=== PATIENT | female | born 1945 | race Caucasian/White ===

== ENCOUNTER → 2016-08-22 | Outpatient (CLI) | payer OTHER ==
[2016-08-22 13:03] LABS: ESTIMATED AVERAGE GLUCOSE 120 mg/dl; HA1C FLAG Normal (Normal)
[2016-08-22 13:13] LABS: ALT/SGPT 23 U/L (12-78); BLOOD UREA NITROGEN 15 mg/dl (7-18); BUN/CREATININE RATIO 15.8 (10-20); CARBON DIOXIDE 25 mmol/L (21-32); CHLORIDE 109 mmol/L (98-107); CHOLESTEROL 209 mg/dl (0-200); CREATININE 0.92 mg/dl (0.60-1.20); GLUCOSE 99 mg/dl (70-99); POTASSIUM 4.3 mmol/L (3.5-5.1); SODIUM 141 mmol/L (136-145); TRIGLYCERIDES 178 mg/dl (0-150); VERY LOW DENSITY LIPOPROT CALC 36 mg/dl
[2016-08-22 13:17] LABS: ALB/GLOB RATIO 1.1 (0.9-2); ALKALINE PHOSPHATASE 41 U/L (45-117); AST/SGOT 17 U/L (15-37); CHOLESTEROL/HDL RATIO 4.9; HDL CHOLESTEROL 43 mg/dl; LDL CHOLESTEROL CALCULATED 130 mg/dl
[2016-08-22 13:24] LABS: CALCIUM 9.4 mg/dl (8.5-10.1)
== END | disposition home or self-care (01) ==
LOC: C.LABPVFM 09:14
PROVIDERS: ATTEND Nurse Practitioner
DX: E78.5 Hyperlipidemia, unspecified (principal); R73.01 Impaired fasting glucose; Z11.59 Encounter for screening for other viral diseases

== ENCOUNTER → 2017-02-25 | Outpatient (CLI) | payer OTHER ==
[2017-02-25 13:08] LABS: BLOOD UREA NITROGEN 20 mg/dl (7-18); BUN/CREATININE RATIO 18.6 (10-20); CARBON DIOXIDE 26 mmol/L (21-32); CHLORIDE 105 mmol/L (98-107); CHOLESTEROL 223 mg/dl (0-200); CREATININE 1.07 mg/dl (0.60-1.20); GLUCOSE 98 mg/dl (70-99); HDL CHOLESTEROL 45 mg/dl; LDL CHOLESTEROL CALCULATED 144 mg/dl; POTASSIUM 4.1 mmol/L (3.5-5.1); SODIUM 139 mmol/L (136-145); TRIGLYCERIDES 168 mg/dl (0-150); VERY LOW DENSITY LIPOPROT CALC 34 mg/dl
== END | disposition home or self-care (01) ==
LOC: C.LABPVFM 07:39
PROVIDERS: ATTEND Nurse Practitioner
DX: E78.5 Hyperlipidemia, unspecified (principal); R73.01 Impaired fasting glucose

== ENCOUNTER → 2017-03-04 | Outpatient (CLI) | payer OTHER | END | disposition home or self-care (01) | LOC: C.LABPVFM 12:48 | PROVIDERS: ATTEND Nurse Practitioner | DX: R35.0 Frequency of micturition (principal); N39.0 Urinary tract infection, site not specified ==

== ENCOUNTER → 2017-07-04 | Outpatient (CLI) | payer OTHER ==
--- NOTE | 2017-07-04 09:48 | DIAGNOSTIC IMAGING REPORT ---
R RIBS UNILATERAL WITH PA CHEST CLINICAL HISTORY: CONTUSION OF RIB ON RIGHT SIDE trauma. Pain. COMPARISON STUDY: None FINDINGS: Negative right ribs. Negative chest. No evidence of pneumothorax. IMPRESSION: Negative right ribs. Negative chest. The above report was generated using voice recognition software. It may contain grammatical, syntax or spelling errors. Electronically signed by: Warner Graham M.D. 07/04/2017 9:47 AM Dictated Date/Time: 07/04/2017 9:45 AM
== END | disposition home or self-care (01) ==
LOC: C.RADPV 09:29
PROVIDERS: ATTEND Family Medicine
DX: S20.211A Contusion of right front wall of thorax, initial encounter (principal); X58.XXXA Exposure to other specified factors, initial encounter

== ENCOUNTER → 2017-08-27 | Outpatient (CLI) | payer OTHER ==
[2017-08-27 13:33] LABS: HEMOGLOBIN A1C 5.9 % (4.5-5.6)
[2017-08-27 13:55] LABS: BLOOD UREA NITROGEN 21 mg/dl (7-18); CARBON DIOXIDE 25 mmol/L (21-32); CHOLESTEROL 163 mg/dl (0-200); CREATININE 1.02 mg/dl (0.60-1.20); GLUCOSE 100 mg/dl (70-99); LDL CHOLESTEROL CALCULATED 87 mg/dl; POTASSIUM 4.2 mmol/L (3.5-5.1); SODIUM 138 mmol/L (136-145)
== END | disposition home or self-care (01) ==
LOC: C.LABPVFM 07:34
PROVIDERS: ATTEND Nurse Practitioner
DX: R73.01 Impaired fasting glucose (principal); E78.5 Hyperlipidemia, unspecified

== ENCOUNTER 2019-04-11 10:44 | Observation (INO) ==
[2019-04-11 11:18] LABS: Basophils # (auto) 0.02 K/uL (0-0.2); Basophils % (auto) 0.2 %; Eosinophils # (auto) 0.11 K/uL (0-0.5); Eosinophils % (auto) 1.3 %; Hematocrit (blood only) 45.6 % (37-47); Hemoglobin 15.7 g/dL (12.0-16.0); Immature Granulocytes # (auto) 0.02 K/uL (0.00-0.02); Immature Granulocytes % (auto) 0.2 %; Lymphocytes # (auto) 1.23 K/uL (1.2-3.4); Lymphocytes % (auto) 14.6 %; Mean Corpuscular Hgb Conc 34.4 g/dL (32-36); Mean Corpuscular Volume 98.7 fL (80-100); Mean Platelet Volume 8.9 fL (7.4-10.4); Monocytes # (auto) 0.52 K/uL (0.11-0.59); Monocytes % (auto) 6.2 %; Neutrophils # (auto) 6.55 K/uL (1.4-6.5); Neutrophils % (auto) 77.5 %; Platelet Count 315 K/uL (130-400); RDW Coefficient of Variation 13.3 % (11.5-14.5); RDW Standard Deviation 47.7 fL (36.4-46.3); Red Blood Count 4.62 M/uL (4.2-5.4); White Blood Count 8.45 K/uL (4.8-10.8)
[2019-04-11 11:32] LABS: Partial Thromboplastin Ratio 0.9; Partial Thromboplastin Time 25.4 Seconds (21.0-31.0); Prothrombin Time 9.8 Seconds (9.0-12.0)
--- NOTE | 2019-04-11 11:39 | XRay Report ---
XR chest 1V portable CLINICAL HISTORY: Chest Pain COMPARISON STUDY: Chest radiograph July 04, 2017. FINDINGS: Lung volumes are normal. Lungs are clear. There is no pneumothorax or pleural effusion. Car diac size is normal. Mediastinal contours are normal. There is no evidence for pulmonary edema. A sma ll hiatal hernia is present. IMPRESSION: 1. No acute cardiopulmonary findings. 2. Small hiatal hernia. ACT 112: Negative or not required by law. Electronically signed by: Sanjay Daley M.D. 04/11/2019 11:38 AM
[2019-04-11 11:44] LABS: Alanine Aminotransferase 17 U/L (12-78); Aspartate Aminotransferase 13 U/L (15-37); BUN Creatinine Ratio 16.3 (10-20); Blood Urea Nitrogen 15 mg/dl (7-18); Carbon Dioxide 24 mmol/L (21-32); Chloride 109 mmol/L (98-107); Est GFR (African American) 72.6; Est GFR (Non-African American) 62.6; Glucose 119 mg/dl (70-99); Potassium 4.1 mmol/L (3.5-5.1); Sodium 140 mmol/L (136-145)
[2019-04-11 11:49] LABS: Albumin Globulin Ratio 1.1 (0.9-2); Alkaline Phosphatase 64 U/L (45-117); Bilirubin,Total 0.6 mg/dl (0.2-1); Globulin 3.6 gm/dl (2.5-4.0); Total Protein 7.6 gm/dl (6.4-8.2); Troponin I < 0.015 ng/ml (0-0.045)
[2019-04-11] MEDS ORDERED: NITROGLYCERIN 2% OINTMENT 30GM TUBE EXT STA (12:13)
[2019-04-11] MEDS ORDERED: ASPIRIN CHEW 324 MG PO STA (12:13)
--- NOTE | 2019-04-11 13:13 | History & Physical Report ---
Date of Service April 11, 2019 Assessment & Plan (1) Chest pain: rule out ACS CBC, PRP WNL Trop neg x1, serials pending CXR noted for hiatal hernia, which could be cause of sx--GI cocktail PRN EKG WNL t/c stress test in AM if sx persist and GI cocktail is not effective Mg, B12 levels pending (2) Elevated blood pressure reading without diagnosis of hypertension: Improved with nitro patch Pt may have underlying HTN that has been managed with nadolol (has been on since the 80s for MVP) Monitor BP at last office visit 03/01 was 114/65 Possibly related to anxiety regarding chest pain as numbers at home have not been elevated over 130s until this AM (3) Mitral valve prolapse syndrome: Takes nadolol for this, continue (4) Insomnia: Trazodone as at home (5) Chronic reflux esophagitis: continue home meds GI cocktail as noted (6) Anxiety: continue home meds (7) Dyslipidemia: continue home meds (8) Impaired fasting glucose: Monitor (9) DVT prophylaxis: Ambulation given likely short duration of admission History of Present Illness Primary Care Provider: LASHELL Clements 73 y/o F c/o chest pain. Pt states that she has been having intermittent chest pain for the last two weeks. She states it comes and goes different times of day, but she also goes days without any episodes. Sometimes the episodes last for minutes, but can last hours as well. She might take a tylenol if the pain persists, but she does not think this helps. The pain is substernal and more central, does not radiate. It can be with activity or at rest. No SOB, n/v, lightheadedness, dizziness. She has a BP cuff and has checked her BP with these episodes at times, but her BP is either WNL or in the 130s systolic. Pt has no hx of HTN. She is fairly active. She goes to an exercise class 3 times a week and has no issues with this. She took down and put away all of her [place] decorations on , which entailed carrying heavy boxes upstairs. She worked on this all day and no chest pain at that time. Yesterday was a normal day for her activity lin and she had no issues doing what she needed to do. Pt states she became very concerned this AM when she had chest pain last night and again when she woke up. She checked her BP at that time and it was 177/90, which it has never been prior. She came to the ED at that time, however her chest pain had resolved by arrival and has not returned. Her BP has been as high as 180s systolic in the ED. Pt has hx of reflux. She takes daily omeprazole. She has not missed dosing. She does not tie chest pain in with eating, but states that she had not really paid attention to the timing from a PO intake standpoint. She does have a "funny stomach" that seems to have more issues recently. Pt denies fever, abd pain, c/d, LE pain or swelling. Allergies Allergy/AdvReac Type Severity Reaction Status Date / Time Sulfa (Sulfonamide Allergy Unknown Verified 04/11/19 11:43 Antibiotics) melatonin AdvReac Mild Diarrhea Verified 04/11/19 11:43 Home Medications Home Medications Medication Instructions Recorded Confirmed Type polyvinyl alcohol-povidone 2.7 %-2 1 drp OPB QAM PRN ml 10/19/18 04/11/19 History % eye drops ascorbic acid (vitamin C) 500 mg 500 mg PO QAM tab 02/22/19 04/11/19 History tablet calcium carbonate 600 mg calcium 600 mg PO QAM tab 02/22/19 04/11/19 History (1,500 mg) tablet cholecalciferol (vitamin D3) 25 1,000 units PO QAM cap 02/22/19 04/11/19 History mcg (1,000 unit) capsule flaxseed oil 1,000 mg capsule 1,000 mg PO BID #1 cap 02/22/19 04/11/19 History omega-3 acid ethyl esters 1 gram 1 cap PO TID #1 cap 02/22/19 04/11/19 History capsule sodium chloride 5 % eye ointment 1 appln OP HS gm 02/22/19 04/11/19 History aspirin 81 mg PO QAM 04/11/19 04/11/19 History atorvastatin 20 mg PO HS 04/11/19 04/11/19 History cinnamon bark [Cinnamon] 500 mg PO BIDM 04/11/19 04/11/19 History nadolol 80 mg PO QAM 04/11/19 04/11/19 History omeprazole 20 mg PO QAM 04/11/19 04/11/19 History trazodone 50 mg PO HS PRN 04/11/19 04/11/19 History Past Med/Surg History Medical History Anxiety (Chronic) Chronic reflux esophagitis (Chronic) Dyslipidemia (Chronic) Impaired fasting glucose (Chronic) Insomnia (Chronic) Mitral valve prolapse syndrome (Chronic) Surgical History No pertinent past surgical history Family History Mother Myocardial infarction Social History marital status: Single Current Living Situation: Alone current occupational status: retired Feels Safe at Home: Yes Smoking Status: Never smoker Hx Alcohol Use: No Hx Substance Use: No caffeine: No Dental Care, Regularly: Yes Physical Activity Frequency: 3-4 Times per Week Seatbelt Use: always Sunscreen Use: Yes Review of Systems Review of Systems: Pertinent positives and negatives reviewed in HPI--all others negative Physical Exam Constitutional: WD/WN, vitals as above Eyes: normal visual jones by confrontation and + anicteric sclerae Neck: normal visual inspection and trachea midline Respiratory: normal respiratory effort, lungs clear to auscultation Cardiovascular: Rate/Rhythm: regular rate and regular rhythm Gastrointestinal (Abdomen): Inspection/Auscultation: abdomen not distended Percussion/Palpation: abdomen soft; abdomen nontender Musculoskeletal: Head/Neck/Chest: normocephalic and head atraumatic negative for edema, peripheral pulses intact Skin: no rashes, warm and dry Neurologic: awake; not confused Speech / Cognition: normal speech Psychiatric: A+Ox3, euthymic affect Results & Data Vital Signs (Past 12 Hours) Vital Signs Temp Pulse Pulse Resp BP BP Pulse Ox 04/11/19 12:16 98 H 20 163/104 H 96 04/11/19 11:03 76 18 176/113 H 98 04/11/19 11:02 98 04/11/19 10:49 36.8 C 76 20 180/98 H 97 Diagnostic Findings CXR: small hiatal hernia ECG Rhythm: normal sinus Code Status & VTE Plan Code Status Full code, although pt states no prolonged mechanical life support, feeding tubes, etc. She has a living will that states this. Daughter is present and agrees with this plan. VTE Prophylaxis Plan VTE Prophylaxis will be ordered: Yes PG Care Time/CCT Total # of Minutes Spent Total Time Spent with Patient: Total time spent is greater than 50% in coordination of care (as documented) at patient's floor/unit and/or counseling patient:
--- NOTE | 2019-04-11 13:13 | Electrocardiogram Report ---
Test Reason : Blood Pressure : / mmHG Vent. Rate : 077 BPM Atrial Rate : 077 BPM P-R Int : 160 ms QRS Dur : 086 ms QT Int : 360 ms P-R-T Axes : 023 -02 051 degrees QTc Int : 407 ms Normal sinus rhythm Normal ECG No previous ECGs available Confirmed by Rancho Sandhu ([id number]) on 04/11/2019 1:13:01 PM Referred By: Confirmed By:Rancho Sandhu
--- NOTE | 2019-04-11 13:27 | Hospitalist Progress Note ---
Date of Service April 11, 2019 Results & Data Vital Signs (Past 12 Hours) Vital Signs Temp Pulse Pulse Resp BP BP Pulse Ox 04/11/19 12:16 98 H 20 163/104 H 96 04/11/19 11:03 76 18 176/113 H 98 04/11/19 11:02 98 04/11/19 10:49 36.8 C 76 20 180/98 H 97 PG Care Time/CCT Total # of Minutes Spent Total Time Spent with Patient: Total time spent is greater than 50% in coordination of care (as documented) at patient's floor/unit and/or counseling patient:
[2019-04-11] MEDS ORDERED: ACETAMINOPHEN 500 MG TAB PO STA (13:34)
[2019-04-11] MEDS ORDERED: ONDANSETRON INJ 2 MG/ML 2 ML VIAL IV PRN (14:23)
[2019-04-11] MEDS ORDERED: TRAZODONE HCL 50 MG TAB PO PRN (14:23)
[2019-04-11] MEDS ORDERED: MAGNESIUM HYDROXIDE SUSP 30 ML UDC PO PRN (14:23)
[2019-04-11] MEDS ORDERED: NITROGLYCERIN SL 0.4 MG/TAB TAB SL PRN (14:23)
[2019-04-11] MEDS ORDERED: ACETAMINOPHEN 325 MG TAB PO PRN (14:23)
[2019-04-11] MEDS ORDERED: ALUMINUM/MAGNESIUM SUSP 18 ML, LIDOCAINE HCL VISCOUS 2% 6 ML, BARCODE IDENTIFIER 1 EA PO PRN (14:23)
[2019-04-11 16:03] LABS: Magnesium 1.9 mg/dl (1.8-2.4); Troponin I < 0.015 ng/ml (0-0.045)
[2019-04-11] MEDS: OMEGA-3 (PURIFIED FISH OIL) 1 GM CAP PO SCH ×2 (16:18→20:23)
--- NOTE | 2019-04-11 16:45 | Emergency Department Note ---
Entered by Tommie Beltrán acting as a scribe for Ced Mckeon MD ED Provider Note CHIEF COMPLAINT: chest pain HISTORY OF PRESENT ILLNESS: The patient is a 73 year old F who presents to the Emergency Room with complaints of intermittent chest pain that started 2 weeks ago. She notes that her chest pain is located in her upper chest. She describes her chest pain as a pressure. She states that when an episode of chest pain starts, it usually lasts for minutes to hours. She denies that her chest pain is made better or worse by anything. She states that she had some chest pressure last night. She adds that she had some chest pressure this morning. She notes that she came into the ED today, because she experienced high blood pressure. She adds that her blood pressure was 177/90. She notes that her blood pressure has never been that high. She states that she is currently also experiencing shortness of breath. She notes that she currently takes Labetalol for a mitral valve prolapse that occurred in the . She denies any recent long trips or hospitalizations. She also denies a history of smoking. She states that she has a family history of a heart attack. She notes that she was taken off of aspirin recently. She adds that she sees a PCP at [facility]. Pt denies LOC, headache, fevers, chills, diaphoresis, visual changes, neck pain, nausea, vomiting, abdominal pain, back pain, melena, hematochezia, urinary symptoms, numbness, weakness, lymphadenopathy, rash, or other complaints. REVIEW OF SYSTEMS: See HPI for pertinent positives and negatives. A total of ten systems were reviewed and were otherwise negative. PMHx/PSHx: Anxiety, mitral valve prolapse, insomnia, dyslipidemia, chronic reflux esophagitis SOCIAL HISTORY: Patient lives at home. Non-smoker. PHYSICAL EXAM: GENERAL: Awake, alert, well-appearing, in no distress HENT: Normocephalic, atraumatic. Oropharynx unremarkable. EYES: PERRL. Normal conjunctiva. Sclera non-icteric. NECK: Inspection normal. Non-tender. Supple. No nuchal rigidity. FROM. No masses. RESPIRATORY: Clear to auscultation. No wheezes. No rales. Normal respiratory effort. CARDIAC: Normal rate. Normal rhythm. No murmurs. No rubs. Extremities warm and well perfused. Pulses equal. No JVD. GI: Soft, non-distended. No tenderness to palpation. No rebound or guarding. No masses. RECTAL: Deferred. MUSCULOSKELETAL: Atraumatic. Chest examination reveals no tenderness. The back is symmetrical on inspection without obvious abnormality. There is no CVA tenderness to palpation. No joint edema. LOWER EXTREMITIES: Calves are equal size bilaterally and non-tender. No edema. No discoloration. NEURO: Normal sensorium. No sensory or motor deficits noted. SKIN: No rash or jaundice noted. EMERGENCY DEPARTMENT COURSE: 1202: The patient was evaluated in room A11B, and a complete history and physical examination were performed. 1221: I reviewed the patient's case with Dr. Leisa Chandler, [facility] Hospitalist. She will evaluate the patient for further management. MEDICAL DECISION MAKING: Triage Nursing notes reviewed and agree them. Additional history obtained from the family. The patient's history was concerning for chest pain. Differential diagnosis: Etiologies such as cardiac ischemia, aortic dissection, pulmonary embolism, pneumonia, pneumothorax, musculoskeletal, infections, pericarditis, myocarditis, esophageal rupture, gastrointestinal, as well as others were entertained. Physical examination: As above. ER treatment provided: Oral aspirin Nitropaste Oral Tylenol Diagnostic interpretation by me: The electrocardiogram was negative for pathologic change. The labs revealed an unremarkable CBC and chemistry panel. LFTs and lipase negative. Troponin normal. Imaging studies: Chest x-ray negative for acute process The patient has had intermittent chest pain. She has a family history of coronary disease. She has significant elevations of her blood pressure. I discussed conservative management with a cardiac work-up in the hospital and the patient and family were in agreement. I gave my usual and customary discussion regarding this issue. Consultation: A consultation was placed with the hospitalist. The case was discussed and diagnostics were reviewed. The patient was evaluated in the ER for further treatment. IMPRESSION: Substernal chest pain PLAN: Admitted as inpatient. The scribe's documentation has been prepared under my direction and personally reviewed by me in its entirety. I confirm that the note above accurately reflects all work, treatment, procedures, and medical decision making performed by me. 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 Beliefs That Will Affect Care: None marital status: Single Current Living Situation: Alone current occupational status: retired Feels Safe at Home: Yes Smoking Status: Never smoker Second Hand Exposure: No ; Hx Alcohol Use: No Hx Substance Use: No caffeine: No Dental Care, Regularly: Yes Physical Activity Frequency: 3-4 Times per Week Seatbelt Use: always Sunscreen Use: Yes Results & Data Vital Signs Vital Signs - 24 hr 04/11/19 10:49 04/11/19 11:02 04/11/19 11:03 Temperature 36.8 C Temperature Source Oral Pulse Rate 76 Pulse Rate [Apical] 76 Pulse Rhythm [Apical] Regular Pulse Strength [Apical] Normal Respiratory Rate 20 18 Respiratory Effort / Characteristics Non-Labored Non-Labored Spontaneous Respiratory Depth Normal Normal Blood Pressure 180/98 H Blood Pressure [Left Arm] 176/113 H Blood Pressure Mean 125 Blood Pressure Mean [Left Arm] 134 Blood Pressure Position [Left Arm] Sitting Pulse Oximetry 97 98 98 Oxygen Delivery Method Room Air Room Air Room Air Sepsis Recent Fever Within 48 Hours No Sepsis Action Taken by Nursing No Action Required 04/11/19 11:17 04/11/19 12:16 Temperature Temperature Source Pulse Rate Pulse Rate [Apical] 98 H Pulse Rhythm [Apical] Pulse Strength [Apical] Respiratory Rate 20 Respiratory Effort / Characteristics Non-Labored Respiratory Depth Normal Blood Pressure Blood Pressure [Left Arm] 163/104 H Blood Pressure Mean Blood Pressure Mean [Left Arm] 123 Blood Pressure Position [Left Arm] Pulse Oximetry 96 Oxygen Delivery Method Room Air Room Air Sepsis Recent Fever Within 48 Hours Sepsis Action Taken by Prison Medications Current Medication List: was personally reviewed by me Laboratory Data Attestation: I reviewed the patient's lab results. Result diagrams: 04/11/19 Unknown 04/11/19 Unknown Lab Results 04/11/19 04/11/19 04/11/19 Range/Units Unknown Unknown Unknown WBC 8.45 (4.8-10.8) K/uL RBC 4.62 (4.2-5.4) M/uL Hgb 15.7 (12.0-16.0) g/dL Hct 45.6 (37-47) % MCV 98.7 (80-100) fL MCH 34.0 (25-34) pg MCHC 34.4 (32-36) g/dL RDW Std Deviation 47.7 H (36.4-46.3) fL RDW Coeff of Abril 13.3 (11.5-14.5) % Plt Count 315 (130-400) K/uL MPV 8.9 (7.4-10.4) fL Immature Gran % (Auto) 0.2 % Neut % (Auto) 77.5 % Lymph % (Auto) 14.6 % [place] % (Auto) 6.2 % Eos % (Auto) 1.3 % Baso % (Auto) 0.2 % Immature Gran # (Auto) 0.02 (0.00-0.02) K/uL Neut # (Auto) 6.55 H (1.4-6.5) K/uL Lymph # (Auto) 1.23 (1.2-3.4) K/uL [place] # (Auto) 0.52 (0.11-0.59) K/uL Eos # (Auto) 0.11 (0-0.5) K/uL Baso # (Auto) 0.02 (0-0.2) K/uL PT 9.8 (9.0-12.0) Seconds INR 1.0 (0.9-1.1) APTT 25.4 (21.0-31.0) Seconds PTT Ratio 0.9 Sodium 140 (136-145) mmol/L Potassium 4.1 (3.5-5.1) mmol/L Chloride 109 H (98-107) mmol/L Carbon Dioxide 24 (21-32) mmol/L Anion Gap 7.0 (3-11) BUN 15 (7-18) mg/dl Creatinine 0.92 (0.6-1.2) mg/dl Est Cr Clr Drug Dosing 48.0 ml/min Est GFR ( Amer) 72.6 Est GFR (Non-Af Amer) 62.6 BUN/Creatinine Ratio 16.3 (10-20) Glucose 119 H (70-99) mg/dl Calcium 10.0 (8.5-10.1) mg/dl Total Bilirubin 0.6 (0.2-1) mg/dl AST 13 L (15-37) U/L ALT 17 (12-78) U/L Alkaline Phosphatase 64 (45-117) U/L Troponin I < 0.015 (0-0.045) ng/ml Total Protein 7.6 (6.4-8.2) gm/dl Albumin 4.0 (3.4-5.0) gm/dl Globulin 3.6 (2.5-4.0) gm/dl Albumin/Globulin Ratio 1.1 (0.9-2) Administered Medications Fish Oil ([place]-3 (Purified Fish Oil)) 1 gm PO TID FRANK Stop: 05/11/19 15:59 Last Admin: 04/11/19 16:18 Dose: 1 gm Documented by: [id number] Miscellaneous (Order Awaiting Action) 1 ea N/A DAILY FRANK Stop: 05/11/19 15:59 Last Admin: 04/11/19 16:18 Dose: Not Given Documented by: [id number] Discontinued Medications Acetaminophen (Tylenol) 1,000 mg PO NOW STA Stop: 04/11/19 13:35 Last Admin: 04/11/19 13:38 Dose: 1,000 mg Documented by: [id number] Aspirin (Aspirin) 324 mg PO NOW STA Stop: 04/11/19 12:14 Last Admin: 04/11/19 12:23 Dose: 324 mg Documented by: [id number] Nitroglycerin (Nitro-Bid 2%) 0.5 inch EXT NOW STA Stop: 04/11/19 12:14 Last Admin: 04/11/19 12:23 Dose: 0.5 inch Documented by: [id number] Imaging Data Radiologist's Impression: Radiology results as stated below per my review and the radiologist's interpretation: XR chest 1V portable CLINICAL HISTORY: Chest Pain COMPARISON STUDY: Chest radiograph July 04, 2017. FINDINGS: Lung volumes are normal. Lungs are clear. There is no pneumothorax or pleural effusion. Cardiac size is normal. Mediastinal contours are normal. There is no evidence for pulmonary edema. A small hiatal hernia is present. IMPRESSION: 1. No acute cardiopulmonary findings. 2. Small hiatal hernia. ACT 112: Negative or not required by law. Electronically signed by: Sanjay Daley M.D. 04/11/2019 11:38 AM ECG Data Attestation: I personally reviewed and interpreted this ECG as follows: Indication: + chest pain Rate (beats per minute): 77 Rhythm: normal sinus ECG Intervals/blocks: + Normal QRS ECG [place]: + Normal ECG ST segments: no ST depression and no ST elevation ECG Findings: no PACs and no PVCs Blood Pressure Blood Pressure Findings: Elevated blood pressure Blood Pressure Disposition: further management by hospitalist Discharge Plan Visit Data *Final* Discharge Date/Time: 04/11/19 13:55 Chief Complaint: Chest Pain Stated Complaint: CHEST PAINS ED Provider: Ced Mckeon Discharge Problem: Substernal chest pain Patient Disposition: Admitted As Inpatient Discharge Instructions Interventions: ED Discharge Assessment Last Done: 04/11/19 13:55 The scribe's documentation has been prepared under my direction and personally reviewed by me in its entirety. I confirm that the note above accurately reflects all work, treatment, procedures, and medical decision making performed by me.
[2019-04-11] MEDS ORDERED: NON-FORMULARY MEDICATION (Cinnamon Bark [Cinnamon] 500 MG) PO SCH (17:00)
[2019-04-11] MEDS ORDERED: SODIUM CHLORIDE 5% (MURO) OP OINT 3.5 GM TUBE OP SCH (21:00)
[2019-04-11] MEDS ORDERED: ATORVASTATIN 20 MG TAB PO SCH (21:00)
[2019-04-11] MEDS ORDERED: NON-FORMULARY MEDICATION (Flaxseed Oil 1,000 MG) PO SCH (21:00)
[2019-04-12] MEDS: OMEGA-3 (PURIFIED FISH OIL) 1 GM CAP PO SCH (08:08)
[2019-04-12 08:20] LABS: Estimated Average Glucose 120 mg/dl; Hemoglobin A1C 5.8 % (4.5-5.6)
[2019-04-12] MEDS ORDERED: CALCIUM 600MG + VIT D 400 IU TAB PO SCH (09:00)
[2019-04-12] MEDS ORDERED: ASCORBIC ACID 500 MG TAB PO SCH (09:00)
[2019-04-12] MEDS ORDERED: ASPIRIN 81 MG ECTAB PO SCH (09:00)
[2019-04-12] MEDS ORDERED: PANTOprazole 40 MG TAB PO SCH (09:00)
[2019-04-12] MEDS ORDERED: nadoloL 40 MG TAB PO SCH (09:00)
[2019-04-12] MEDS ORDERED: CHOLECALCIFEROL 1,000 UNITS TAB PO SCH (09:00)
--- NOTE | 2019-04-12 10:47 | Discharge Summary ---
Date of Service April 12, 2019 Admission HPI Per Admitting Provider 73 y/o F c/o chest pain. Pt states that she has been having intermittent chest pain for the last two weeks. She states it comes and goes different times of day, but she also goes days without any episodes. Sometimes the episodes last for minutes, but can last hours as well. She might take a tylenol if the pain persists, but she does not think this helps. The pain is substernal and more central, does not radiate. It can be with activity or at rest. No SOB, n/v, lightheadedness, dizziness. She has a BP cuff and has checked her BP with these episodes at times, but her BP is either WNL or in the 130s systolic. Pt has no hx of HTN. She is fairly active. She goes to an exercise class 3 times a week and has no issues with this. She took down and put away all of her [employer] decorations on , which entailed carrying heavy boxes upstairs. She worked on this all day and no chest pain at that time. Yesterday was a normal day for her activity lin and she had no issues doing what she needed to do. Pt states she became very concerned this AM when she had chest pain last night and again when she woke up. She checked her BP at that time and it was 177/90, which it has never been prior. She came to the ED at that time, however her chest pain had resolved by arrival and has not returned. Her BP has been as high as 180s systolic in the ED. Pt has hx of reflux. She takes daily omeprazole. She has not missed dosing. She does not tie chest pain in with eating, but states that she had not really paid attention to the timing from a PO intake standpoint. She does have a "funny stomach" that seems to have more issues recently. Pt denies fever, abd pain, c/d, LE pain or swelling. Principal Diagnosis Pt states she had one very fleeting episode of chest pain last night. It came at rest and resolved almost instantly. She did page nursing, but it was felt that since the pain had resolved, it would not benefit pt to have a trial of GI cocktail unless her pain returned. It did not. Pt denies fever, SOB, abd pain, n/v/c/d, LE pain or swelling. Pt states she has 2-3 bowel movements daily. She frequently strains with this and they are not large volume. She also had a "funny stomach" which she further describes as mild nausea after eating that resolves on its own. Discharge Exam Constitutional WD/WN, vitals as above Eyes normal visual jones by confrontation and + anicteric sclerae Neck normal visual inspection and trachea midline Respiratory normal respiratory effort, lungs clear to auscultation Cardiovascular Rate/Rhythm: regular rate and regular rhythm Gastrointestinal (Abdomen) Inspection/Auscultation: abdomen not distended Percussion/Palpation: abdomen soft; abdomen nontender Musculoskeletal Head/Neck/Chest: normocephalic and head atraumatic Skin no rashes, warm and dry Neurologic awake; not confused Speech / Cognition: normal speech Psychiatric A+Ox3, euthymic affect Discharge Data Allergies Allergy/AdvReac Type Severity Reaction Status Date / Time Sulfa (Sulfonamide Allergy Unknown Verified 04/11/19 11:43 Antibiotics) melatonin AdvReac Mild Diarrhea Verified 04/11/19 11:43 Consultations 04/11/19 12:26 ED Decision to Admit Stat Hospital Course (1) Chest pain: rule out ACS CBC, PRP WNL Trop neg x3, EKG WNL CXR noted for hiatal hernia, which could be cause of sx--GI cocktail was not given for trial t/c stress test as outpt if recurring sx Advised to add probiotic to help with GI concerns, which may also help if chest pain stemming from hiatal hernia Mg WNL (2) Elevated blood pressure reading without diagnosis of hypertension: Improved with nitro patch Pt may have underlying HTN that has been managed with nadolol (has been on since the 80s for MVP) Monitor BP at last office visit 03/01 was 114/65 Possibly related to anxiety regarding chest pain as numbers at home have not been elevated over 130s in the past BP was in 130s during admission (3) Mitral valve prolapse syndrome: Takes nadolol for this, continue (4) Insomnia: Trazodone as at home (5) Chronic reflux esophagitis: continue home meds probiotics (6) Anxiety: continue home meds (7) Dyslipidemia: continue home meds (8) DVT prophylaxis: Ambulation given likely short duration of admission (9) B12 deficiency: B12 291 Advised SL B complex Total Time Total Time Spent Total Time Spent (In Minutes): >30 Total Time Includes: Examination of the Patient, Discharge Planning, Medication Reconciliation and Other Discharge Plan Discharge Items Patient Disposition: Home - Self-Care Reason For Visit: CHEST PAINS Discharge Diagnosis: chest pain, likely related to hiatal hernia Activity: Resume your previous activity Non-emergency contact: Primary Care Provider Call non-emergency contact if: your pain is not controlled, your pain is worsening and your pain is unusual for you Follow-up/Referrals: Shey Penny CRNP [Primary Care Provider] - Diet: Regular Addtl Attending Provider Instructions: You should start taking a probiotic. The one I recommend for most patients is J[employer] EPS 5 billion. It is a mix of 8 different bacteria. You can find this product at [employer] in [place]. You should start with 1 a day. The goal is to have 1 solid bowel movement a day. If after 2 weeks you are still feeling constipated, you should increase to 2 probiotics daily. You can take up to 4 a day, but you want to take the least amount of any type of medication or supplement. If you start having diarrhea, you might be taking too much and should decrease. You should take the probiotic away from your reflux medication. You take the reflux medication in the morning, so I would suggest taking the probiotic at night just before bed. You could also take it 30 minutes prior to taking your reflux medication if this is more convenient. Your B12 levels were low. You should start taking a supplement for this. I recommend a sublingual (under the tongue) form because it is better absorbed. It is a B complex, meaning it has several types of B vitamins in it. A good brand is SpunLive and you can find it at [employer] for around $5. You should follow up with your PCP in 2 weeks. If you continue to have chest pain or your chest pain occurs with your exercise, you may need to have a stress test. Pending Studies at Discharge: No Stand-Alone Forms: Call Back Authorization, [employer], Smoking Cessation Medications and DC Order Prescriptions: Continued polyvinyl alcohol-povidone 2.7-2 % drops 1 drp OPB QAM PRN (Reason: Eye Irritation) RF: 0 ascorbic acid (vitamin C) 500 mg tablet 500 mg PO QAM RF: 0 calcium carbonate 600 mg calcium (1,500 mg) tablet 600 mg PO QAM RF: 0 cholecalciferol (vitamin D3) 1,000 unit capsule 1,000 units PO QAM RF: 0 flaxseed oil 1,000 mg capsule 1,000 mg PO BID Qty: 1 RF: 0 omega-3 acid ethyl esters 1 gram capsule 1 cap PO TID Qty: 1 RF: 0 sodium chloride 5 % ointment 1 appln OP HS RF: 0 aspirin 81 mg Tablet,Delayed Release (Dr/Ec) 81 mg PO QAM RF: 0 cinnamon bark [Cinnamon] 500 mg Capsule 500 mg PO BIDM RF: 0 atorvastatin 20 mg tablet 20 mg PO HS RF: 0 nadolol 80 mg tablet 80 mg PO QAM RF: 0 trazodone 50 mg tablet 50 mg PO HS PRN (Reason: Insomnia) RF: 0 omeprazole 20 mg capsule,delayed release(DR/EC) 20 mg PO QAM RF: 0 Discharge Orders: Discharge Order (Routine); Ordered 04/12/19 Ordered By: Leisa Chandler Admission Data Admit Date/Time: 04/11/19 12:58 Attending Provider: Leisa Chandler Admit Provider: Leisa Chandler Primary Care Provider: Shey Penny Other Providers: Leisa Chandler Other Interventions: Discharge Summary Assessment (RN) Last Done: 04/12/19 10:26 DC Date/Time DO NOT enter until pt leaves facility: 04/12/19 11:23
== END 2019-04-12 11:23 | disposition home or self-care (01) ==
LOC: ED 10:44 → 2N 10:44

== ENCOUNTER 2022-07-15 14:10 | Observation (INO) ==
[2022-07-15] MEDS ORDERED: ONDANSETRON INJ 2 MG/ML 2 ML VIAL IV STA ×2 (14:19→16:31)
[2022-07-15] MEDS ORDERED: ACETAMINOPHEN 1,000 MG/100 ML VIAL IV STA (14:19)
--- NOTE | 2022-07-15 14:24 | Emergency Department Note ---
History of Present Illness General Chief complaint: Illness Stated complaint: NAUSEA, VOMITING, DIARRHEA Time Seen by Provider: 07/15/22 14:13 History of Present Illness Provider Complaint: + nausea, + vomiting, + diarrhea and + abdominal pain Onset (ago): day(s) 1 Description of Vomiting: no bilious, no blood-streaked, no bloody or no coffee grounds Description of Diarrhea: no mucousy, no tarry, no blood-streaked or no bloody (bright red) Associated Abdominal Pain: Yes Location of pain: + diffuse Quality: + cramping, + stabbing, + aching, + crushing, + sharp and + dull Pain Consistency: + constant Relieved By: + none Exacerbated By: + eating and + vomiting Context: + possible food poisoning (Symptoms began after eating meatloaf and scallop potatoes last night); no sick contacts, no recent antibiotic use, no alcohol abuse, no smoking or no marijuana use Associated symptoms: + fever/chills; no chest pain or no cough Home Medications Medication Instructions Recorded Confirmed Type polyvinyl alcohol-povidone 2.7 %-2 1 drp OPB QAM PRN Eye Irritation 10/19/18 07/15/22 History % eye drops ascorbic acid (vitamin C) 500 mg 500 mg PO QAM 02/22/19 07/15/22 History tablet calcium carbonate 600 mg calcium 600 mg PO BID 02/22/19 07/15/22 History (1,500 mg) tablet cholecalciferol (vitamin D3) 25 1,000 units PO QAM 02/22/19 07/15/22 History mcg (1,000 unit) capsule flaxseed oil 1,000 mg capsule 1,000 mg PO BID #1 cap 02/22/19 07/15/22 History omega-3 acid ethyl esters 1 gram 1 cap PO QAM #1 cap 02/22/19 07/15/22 History capsule sodium chloride 5 % eye ointment 1 appln OPB HS 02/22/19 07/15/22 History aspirin 81 mg tablet,delayed 81 mg PO QAM 04/11/19 07/15/22 History release cinnamon bark 500 mg capsule 500 mg PO BIDM 04/11/19 07/15/22 History (Cinnamon) lactobacillus combination no.9 4 4,000 mmu cells PO DAILY 04/23/19 07/15/22 History billion cell capsule (Adult 50 Plus Probiotic) vitamin B12 500 mcg-folic acid 400 1 tab PO QDL 04/23/19 07/15/22 History mcg tablet nadolol 80 mg tablet 80 mg PO QAM #90 tabs 01/24/22 07/15/22 Rx omeprazole 20 mg capsule,delayed 20 mg PO QAM #90 caps 03/11/22 07/15/22 Rx release atorvastatin 20 mg tablet 20 mg PO HS #30 tabs 04/12/22 07/15/22 Rx blood sugar diagnostic #50 ea 04/26/22 07/02/22 Rx glucometer- one touch #1 ea 04/26/22 07/02/22 Rx lancets #1 ea 04/26/22 07/02/22 Rx hydroxyzine HCl 25 mg tablet 25 mg PO TID PRN anxiety #90 tabs 05/15/22 07/15/22 Rx lorazepam 0.5 mg tablet 0.5 mg PO DAILY PRN anxiety #10 07/02/22 07/15/22 Rx tabs trazodone 100 mg tablet 100 mg PO HS PRN insomnia 07/15/22 07/15/22 History Allergies Allergy/AdvReac Type Severity Reaction Status Date / Time Sulfa (Sulfonamide Allergy Unknown Unknown Verified 07/02/22 13:26 Antibiotics) melatonin AdvReac Mild Diarrhea Verified 07/02/22 13:26 Past Med/Surg History Medical History Anxiety Chronic reflux esophagitis Dyslipidemia Hip pain, left Insomnia Lumbar radiculopathy Mitral valve prolapse syndrome Osteoarthritis of left hip Spinal stenosis, lumbar region with neurogenic claudication Surgical History No pertinent past surgical history Family History Mother Myocardial infarction Denies family history of Ovarian cancer Prostate cancer Breast cancer Colorectal cancer Social History Smoking Status: Never smoker Second Hand Exposure: No; Hx Alcohol Use: No Hx Substance Use: No Preferred Language: Tongan Communication Ability: Effective Detonator Assembler Required: No Beliefs That Will Affect Care: None marital status: Single Current Living Situation: Alone current occupational status: retired How many Children do You have: 0 Feels Safe at Home: Yes Childhood Exposure to Second-Hand Smoke: No caffeine: No Dental Care, Regularly: Yes Physical Activity Frequency: 3-4 Times per Week Seatbelt Use: always Sunscreen Use: Yes Assistive Devices: Glasses Physical Exam Vital Signs: Vital Signs - 24 hr 07/15/22 14:14 07/15/22 14:14 07/15/22 14:30 Temperature 38.3 C H 37.7 C H Temperature Source Oral Oral Pulse Rate 98 H 89 Pulse Rate [Right Apical] 97 H Pulse Rate from Sp O2 Sensor Respiratory Rate 18 18 18 Respiratory Effort / Characteristics Non-Labored Sponta neous Non-Labored Sponta neous Respiratory Depth Normal Normal Respiratory Patter n Regular Regular Blood Pressure 137/87 Blood Pressure [Ri ght Arm] 137/87 Blood Pressure Yessy n 103 Blood Pressure Yessy n [Right Arm] 103 Pulse Oximetry 95 95 98 Oxygen Delivery Me thod Room Air Room Air Room Air Sepsis Recent Feve r Within 48 Hours Yes Sepsis New/Unexpla ined Change in Men taty Status No Sepsis Action Take n by Nursing No Action Required 07/15/22 14:30 07/15/22 14:21 07/15/22 14:34 Temperature Temperature Source Pulse Rate 97 H Pulse Rate [Right Apical] 89 101 H Pulse Rate from Sp O2 Sensor Respiratory Rate 18 18 Respiratory Effort / Characteristics Non-Labored Sponta neous Non-Labored Sponta neous Respiratory Depth Normal Normal Respiratory Patter n Regular Regular Blood Pressure Blood Pressure [Ri ght Arm] 126/74 Blood Pressure Yessy n Blood Pressure Yessy n [Right Arm] 91 Pulse Oximetry 98 96 Oxygen Delivery Me thod Room Air Room Air Sepsis Recent Feve r Within 48 Hours Sepsis New/Unexpla ined Change in Men taty Status Sepsis Action Take n by Nursing 07/15/22 14:49 07/15/22 14:21 07/15/22 14:30 Temperature Temperature Source Pulse Rate 88 Pulse Rate [Right Apical] 97 H Pulse Rate from Sp O2 Sensor 102 H Respiratory Rate 18 23 Respiratory Effort / Characteristics Non-Labored Sponta neous Respiratory Depth Normal Respiratory Patter n Blood Pressure 126/74 Blood Pressure [Ri ght Arm] Blood Pressure Yessy n 91 Blood Pressure Yessy n [Right Arm] Pulse Oximetry 96 96 Oxygen Delivery Me thod Room Air Sepsis Recent Feve r Within 48 Hours Sepsis New/Unexpla ined Change in Men taty Status Sepsis Action Take n by Nursing 07/15/22 14:30 07/15/22 15:00 07/15/22 15:30 Temperature Temperature Source Pulse Rate 86 94 H 90 Pulse Rate [Right Apical] Pulse Rate from Sp O2 Sensor 86 Respiratory Rate 20 18 22 Respiratory Effort / Characteristics Respiratory Depth Respiratory Patter n Blood Pressure Blood Pressure [Ri ght Arm] Blood Pressure Yessy n Blood Pressure Yessy n [Right Arm] Pulse Oximetry 97 Oxygen Delivery Me thod Sepsis Recent Feve r Within 48 Hours Sepsis New/Unexpla ined Change in Men taty Status Sepsis Action Take n by Nursing 07/15/22 15:45 07/15/22 15:45 07/15/22 16:00 Temperature Temperature Source Pulse Rate 93 H Pulse Rate [Right Apical] Pulse Rate from Sp O2 Sensor 92 H Respiratory Rate 20 Respiratory Effort / Characteristics Respiratory Depth Respiratory Patter n Blood Pressure 135/83 147/86 H Blood Pressure [Ri ght Arm] Blood Pressure Yessy n 100 106 Blood Pressure Yessy n [Right Arm] Pulse Oximetry 97 Oxygen Delivery Me thod Sepsis Recent Feve r Within 48 Hours Sepsis New/Unexpla ined Change in Men taty Status Sepsis Action Take n by Nursing 07/15/22 16:00 07/15/22 16:15 07/15/22 16:15 Temperature Temperature Source Pulse Rate 93 H 96 H Pulse Rate [Right Apical] Pulse Rate from Sp O2 Sensor 93 H 96 H Respiratory Rate 19 22 Respiratory Effort / Characteristics Respiratory Depth Respiratory Patter n Blood Pressure 148/83 H Blood Pressure [Ri ght Arm] Blood Pressure Yessy n 104 Blood Pressure Yessy n [Right Arm] Pulse Oximetry 96 95 Oxygen Delivery Me thod Sepsis Recent Feve r Within 48 Hours Sepsis New/Unexpla ined Change in Men taty Status Sepsis Action Take n by Nursing 07/15/22 16:30 07/15/22 16:30 07/15/22 16:45 Temperature Temperature Source Pulse Rate 95 H 103 H Pulse Rate [Right Apical] Pulse Rate from Sp O2 Sensor 94 H 102 H Respiratory Rate 19 23 Respiratory Effort / Characteristics Respiratory Depth Respiratory Patter n Blood Pressure 134/82 Blood Pressure [Ri ght Arm] Blood Pressure Yessy n 99 Blood Pressure Yessy n [Right Arm] Pulse Oximetry 96 96 Oxygen Delivery Me thod Sepsis Recent Feve r Within 48 Hours Sepsis New/Unexpla ined Change in Men taty Status Sepsis Action Take n by Nursing 07/15/22 16:45 07/15/22 17:00 07/15/22 17:15 Temperature Temperature Source Pulse Rate 102 H 101 H Pulse Rate [Right Apical] Pulse Rate from Sp O2 Sensor Respiratory Rate 24 19 Respiratory Effort / Characteristics Respiratory Depth Respiratory Patter n Blood Pressure 146/82 H Blood Pressure [Ri ght Arm] Blood Pressure Yessy n 103 Blood Pressure Yessy n [Right Arm] Pulse Oximetry Oxygen Delivery Me thod Sepsis Recent Feve r Within 48 Hours Sepsis New/Unexpla ined Change in Men taty Status Sepsis Action Take n by Nursing 07/15/22 18:39 07/15/22 18:33 07/15/22 18:34 Temperature Temperature Source Pulse Rate 104 H 102 H 103 H Pulse Rate [Right Apical] Pulse Rate from Sp O2 Sensor 103 H Respiratory Rate 20 25 H Respiratory Effort / Characteristics Respiratory Depth Respiratory Patter n Blood Pressure Blood Pressure [Ri ght Arm] Blood Pressure Yessy n Blood Pressure Yessy n [Right Arm] Pulse Oximetry 96 Oxygen Delivery Me thod Sepsis Recent Feve r Within 48 Hours Sepsis New/Unexpla ined Change in Men taty Status Sepsis Action Take n by Nursing 07/15/22 18:34 07/15/22 19:00 07/15/22 19:01 Temperature Temperature Source Pulse Rate 103 H Pulse Rate [Right Apical] Pulse Rate from Sp O2 Sensor Respiratory Rate 25 H Respiratory Effort / Characteristics Respiratory Depth Respiratory Patter n Blood Pressure 139/80 122/83 Blood Pressure [Ri ght Arm] Blood Pressure Yessy n 99 96 Blood Pressure Yessy n [Right Arm] Pulse Oximetry Oxygen Delivery Me thod Sepsis Recent Feve r Within 48 Hours Sepsis New/Unexpla ined Change in Men taty Status Sepsis Action Take n by Nursing 07/15/22 19:01 07/15/22 19:30 07/15/22 19:30 Temperature Temperature Source Pulse Rate 102 H 100 H Pulse Rate [Right Apical] Pulse Rate from Sp O2 Sensor 102 H 101 H Respiratory Rate 21 18 Respiratory Effort / Characteristics Respiratory Depth Respiratory Patter n Blood Pressure 125/73 Blood Pressure [Ri ght Arm] Blood Pressure Yessy n 90 Blood Pressure Yessy n [Right Arm] Pulse Oximetry 96 94 Oxygen Delivery Me thod Sepsis Recent Feve r Within 48 Hours Sepsis New/Unexpla ined Change in Men taty Status Sepsis Action Take n by Nursing 07/15/22 20:00 07/15/22 20:00 07/15/22 20:30 Temperature Temperature Source Pulse Rate 98 H Pulse Rate [Right Apical] 85 Pulse Rate from Sp O2 Sensor 97 H Respiratory Rate 22 Respiratory Effort / Characteristics Respiratory Depth Respiratory Patter n Blood Pressure 112/68 Blood Pressure [Ri ght Arm] Blood Pressure Yessy n 82 Blood Pressure Yessy n [Right Arm] Pulse Oximetry 95 Oxygen Delivery Me thod Sepsis Recent Feve r Within 48 Hours Sepsis New/Unexpla ined Change in Men ttay Status Sepsis Action Take n by Nursing Physical Exam: Physical Exam GENERAL: She is oriented to person, place, and time. She appears well-developed and well-nourished. HENT: Exam performed. -Head: Normocephalic and atraumatic. -Right Ear: External ear normal. No mastoid erythema -Left Ear: External ear normal. No mastoid erythema EYES: Conjunctivae and EOM are normal. Right eye exhibits no discharge. Left eye exhibits no discharge. No scleral icterus. NECK: Normal range of motion. Neck supple. No JVD present. No spinous process tenderness present. No tracheal deviation and normal range of motion present. CV: Normal rate, regular rhythm, normal heart sounds and intact distal pulses. There is no peripheral edema. Palpable radial pulses bue. PULM/CHEST: Effort normal and breath sounds normal. No respiratory distress. No stridor. She has no wheezes. She has no rales. ABD: The abdomen is soft. Bowel sounds are normal. She has no distension. There is no tenderness. There is no rebound, no guarding MUSC/SKEL: Normal range of motion. There is no peripheral edema, tenderness or deformity. LYMPH: No cervical adenopathy. NEURO: Motor and sensation grossly intact. SKIN: Skin is warm and dry. She is not diaphoretic. PSYCH: She has a normal mood and affect. Behavior is normal. Judgment and thought content normal. Course Course 1413: The patient was evaluated in room B4. A complete history and physical exam was performed Cardiac monitoring: An order was placed for continuous cardiac monitoring. The monitor shows a rate of 90 with sinus rhythm interpreted by me 1715: Vital signs stable. Labs show leukocytosis of 17.69 with 16.73 neutrophils. Lactic acid elevated at 2.9. 1500 cc normal saline bolus given to the patient based off her ideal body weight. CT abdomen pelvis states that there is liquid stool throughout most of the colon suggestive of an entero colitis. There is nonspecific gallbladder wall thickening no significant surrounding inflammation if concern for cholecystitis recommended right upper quadrant ultrasound. Will obtain ultrasound. Chest x-ray negative. 1900: Vital signs stable. Ultrasound of the right upper quadrant shows a dist ended gallbladder with thickened rojas and in the mattress no shadowing gallstones Cui sign absent. Repeat lactic acid status post 30 cc/kg bolus is within normal limits. Patient will be admitted to the [facility] team Dr. Jackson notified. Patient still has not given a stool sample. We will hold off on antibiotics at this time as the patient's lactic acid is improved and if the patient has a viral GI illness causing diarrhea or bacterial infection where antibiotics are not indicated or could be deleterious such as E. coli 0157. Discussed with [facility] Dr. Jackson teamwho will evaluate the patient. Administered Medications Discontinued Medications Acetaminophen (Ofirmev) 1,000 mg in 100 mls @ 400 mls/hr IV NOW STA Stop: 07/15/22 14:33 Last Infusion: 07/15/22 16:29 Dose: 0 mls/hr Documented By: Admin: 07/15/22 15:02 Dose: 400 mls/hr Documented By: BRYANNA Sodium Chloride (Nss 1000ml) 1,000 mls @ 999 mls/hr IV .Q1H1M FRANK Stop: 07/15/22 15:30 Last Infusion: 07/15/22 16:29 Dose: 0 mls/hr Documented By: Admin: 07/15/22 15:03 Dose: 999 mls/hr Documented By: BRYANNA Sodium Chloride (Nss 1000ml) 500 mls @ 999 mls/hr IV .Q31M ONE Stop: 07/15/22 17:01 Last Infusion: 07/15/22 17:33 Dose: 0 mls/hr Documented By: Admin: 07/15/22 17:00 Dose: 999 mls/hr Documented By: ARMINDA Ioversol (Optiray 350 100ml) 85 ml IV ONCE ONE Stop: 07/15/22 16:41 Last Admin: 07/15/22 16:40 Dose: 85 ml Documented By: NICHOLE Ondansetron HCl (Ondansetron Inj 2 Mg/Ml 2 Ml Vial) 4 mg IV NOW STA Stop: 07/15/22 14:20 Last Admin: 07/15/22 15:02 Dose: 4 mg Documented By: BRYANNA Ondansetron HCl (Ondansetron Inj 2 Mg/Ml 2 Ml Vial) 4 mg IV NOW STA Stop: 07/15/22 16:32 Last Admin: 07/15/22 17:00 Dose: 4 mg Documented By: ARMINDA Medical Decision Making Laboratory Data Attestation: I reviewed the patient's lab results. 07/15/22 15:30 07/15/22 15:30 Lab Results 07/15/22 07/15/22 07/15/22 Range/Units 15:30 15:30 15:30 WBC 17.69 H (4.8-10.8) K/ul RBC 4.29 (4.20-5.40) M/uL Hgb 14.4 (12.0-16.0) g/dl Hct 42.1 (37.0-47.0) % MCV 98.1 (80.0-100.0) fL MCH 33.6 (25.0-34.0) pg MCHC 34.2 (32.0-36.0) g/dL RDW Std Deviation 45.6 (36.4-46.3) fL RDW Coeff of Abril 12.7 (11.5-14.5) % Plt Count 348 (130-400) K/uL MPV 8.7 L (9.4-12.4) fL Immature Gran % (Auto) 0.5 % Neut % (Auto) 94.6 % Lymph % (Auto) 2.5 % [place] % (Auto) 2.3 % Eos % (Auto) 0.0 % Baso % (Auto) 0.1 % Neut # (Auto) 16.73 H (1.40-6.50) K/uL Lymph # (Auto) 0.45 L (1.2-3.4) K/uL [place] # (Auto) 0.40 (0.11-0.59) K/uL Eos # (Auto) 0.00 (0-0.50) K/uL Baso # (Auto) 0.02 (0-0.2) K/uL Immature Gran # (Auto) 0.09 (0.01-0.20) K/uL Toxic Vacuolation 1+ Polychromasia 1+ PT (9.0-12.0) Seconds INR (0.9-1.1) APTT (21.0-31.0) Seconds PTT Ratio VBG pH (7.36-7.41) VBG pCO2 (38-50) mmHg VBG pO2 mmHg VBG HCO3 mmol/L VBG O2 Saturation % VBG Base Excess mEq/L Sodium 140 (136-145) mmol/L Potassium 3.6 (3.5-5.1) mmol/L Chloride 105 (98-107) mmol/L Carbon Dioxide 25 (21-32) mmol/L Anion Gap 10 (3-11) BUN 25 H (6-23) mg/dl Creatinine 0.75 (0.6-1.2) mg/dl Est Cr Clr Drug Dosing 55.7 ml/min Est GFR ( Amer) 91.0 ml/min Est GFR (Non-Af Amer) 78.5 ml/min BUN/Creatinine Ratio 33.3 H (10-20) Glucose 106 H (70-99(Fasting)) mg/dl Lactate 2.9 H* (0.4-2.0) mmol/L Calcium 8.8 (8.6-10.3) mg/dl Magnesium 1.7 (1.7-2.4) mg/dl Total Bilirubin 0.7 (0.2-1.0) mg/dl Direct Bilirubin 0.1 (0-0.2) mg/dl AST 20 (13-39) U/L ALT 14 (7-52) U/L Alkaline Phosphatase 51 (34-104) U/L Troponin I High Sens 5.3 (0-14) pg/ml Total Protein 6.8 (6.0-8.3) gm/dl Albumin 4.1 (3.4-5.0) gm/dl Lipase 19 (11-82) U/L Procalcitonin (0-0.5) ng/ml Urine Color Urine Appearance (Clear) Urine pH (4.5-7.5) Ur Specific [place] (1.000-1.030) Urine Protein (Negative) Urine Glucose (UA) (Negative) Urine Ketones (Negative) Urine Blood (Negative) Urine Nitrite (Negative) Urine Bilirubin (Negative) Urine Urobilinogen (Negative) Ur Leukocyte Esterase (Negative) SARS-CoV-2 (PCR) (Negative) Influenza Type A (PCR) (Neg) Influenza Type B (PCR) (Neg) RSV (RT-PCR) (Neg) 07/15/22 07/15/22 07/15/22 Range/Units 15:30 15:30 15:30 WBC (4.8-10.8) K/ul RBC (4.20-5.40) M/uL Hgb (12.0-16.0) g/dl Hct (37.0-47.0) % MCV (80.0-100.0) fL MCH (25.0-34.0) pg MCHC (32.0-36.0) g/dL RDW Std Deviation (36.4-46.3) fL RDW Coeff of Abril (11.5-14.5) % Plt Count (130-400) K/uL MPV (9.4-12.4) fL Immature Gran % (Auto) % Neut % (Auto) % Lymph % (Auto) % [place] % (Auto) % Eos % (Auto) % Baso % (Auto) % Neut # (Auto) (1.40-6.50) K/uL Lymph # (Auto) (1.2-3.4) K/uL [place] # (Auto) (0.11-0.59) K/uL Eos # (Auto) (0-0.50) K/uL Baso # (Auto) (0-0.2) K/uL Immature Gran # (Auto) (0.01-0.20) K/uL Toxic Vacuolation Polychromasia PT 10.6 (9.0-12.0) Seconds INR 1.0 (0.9-1.1) APTT 26.0 (21.0-31.0) Seconds PTT Ratio 0.9 VBG pH 7.42 H (7.36-7.41) VBG pCO2 40 (38-50) mmHg VBG pO2 34 mmHg VBG HCO3 26 mmol/L VBG O2 Saturation 60.5 % VBG Base Excess 1.3 mEq/L Sodium (136-145) mmol/L Potassium (3.5-5.1) mmol/L Chloride (98-107) mmol/L Carbon Dioxide (21-32) mmol/L Anion Gap (3-11) BUN (6-23) mg/dl Creatinine (0.6-1.2) mg/dl Est Cr Clr Drug Dosing ml/min Est GFR ( Amer) ml/min Est GFR (Non-Af Amer) ml/min BUN/Creatinine Ratio (10-20) Glucose (70-99(Fasting)) mg/dl Lactate (0.4-2.0) mmol/L Calcium (8.6-10.3) mg/dl Magnesium (1.7-2.4) mg/dl Total Bilirubin (0.2-1.0) mg/dl Direct Bilirubin (0-0.2) mg/dl AST (13-39) U/L ALT (7-52) U/L Alkaline Phosphatase (34-104) U/L Troponin I High Sens (0-14) pg/ml Total Protein (6.0-8.3) gm/dl Albumin (3.4-5.0) gm/dl Lipase (11-82) U/L Procalcitonin 0.29 (0-0.5) ng/ml Urine Color Urine Appearance (Clear) Urine pH (4.5-7.5) Ur Specific [place]ony (1.000-1.030) Urine Protein (Negative) Urine Glucose (UA) (Negative) Urine Ketones (Negative) Urine Blood (Negative) Urine Nitrite (Negative) Urine Bilirubin (Negative) Urine Urobilinogen (Negative) Ur Leukocyte Esterase (Negative) SARS-CoV-2 (PCR) (Negative) Influenza Type A (PCR) (Neg) Influenza Type B (PCR) (Neg) RSV (RT-PCR) (Neg) 07/15/22 07/15/22 07/15/22 Range/Units 16:55 18:31 Unknown WBC (4.8-10.8) K/ul RBC (4.20-5.40) M/uL Hgb (12.0-16.0) g/dl Hct (37.0-47.0) % MCV (80.0-100.0) fL MCH (25.0-34.0) pg MCHC (32.0-36.0) g/dL RDW Std Deviation (36.4-46.3) fL RDW Coeff of Abril (11.5-14.5) % Plt Count (130-400) K/uL MPV (9.4-12.4) fL Immature Gran % (Auto) % Neut % (Auto) % Lymph % (Auto) % [place] % (Auto) % Eos % (Auto) % Baso % (Auto) % Neut # (Auto) (1.40-6.50) K/uL Lymph # (Auto) (1.2-3.4) K/uL [place] # (Auto) (0.11-0.59) K/uL Eos # (Auto) (0-0.50) K/uL Baso # (Auto) (0-0.2) K/uL Immature Gran # (Auto) (0.01-0.20) K/uL Toxic Vacuolation Polychromasia PT (9.0-12.0) Seconds INR (0.9-1.1) APTT (21.0-31.0) Seconds PTT Ratio VBG pH (7.36-7.41) VBG pCO2 (38-50) mmHg VBG pO2 mmHg VBG HCO3 mmol/L VBG O2 Saturation % VBG Base Excess mEq/L Sodium (136-145) mmol/L Potassium (3.5-5.1) mmol/L Chloride (98-107) mmol/L Carbon Dioxide (21-32) mmol/L Anion Gap (3-11) BUN (6-23) mg/dl Creatinine (0.6-1.2) mg/dl Est Cr Clr Drug Dosing ml/min Est GFR ( Amer) ml/min Est GFR (Non-Af Amer) ml/min BUN/Creatinine Ratio (10-20) Glucose (70-99(Fasting)) mg/dl Lactate 1.8 (0.4-2.0) mmol/L Calcium (8.6-10.3) mg/dl Magnesium (1.7-2.4) mg/dl Total Bilirubin (0.2-1.0) mg/dl Direct Bilirubin (0-0.2) mg/dl AST (13-39) U/L ALT (7-52) U/L Alkaline Phosphatase (34-104) U/L Troponin I High Sens (0-14) pg/ml Total Protein (6.0-8.3) gm/dl Albumin (3.4-5.0) gm/dl Lipase (11-82) U/L Procalcitonin (0-0.5) ng/ml Urine Color Yellow Urine Appearance Clear (Clear) Urine pH 5.0 (4.5-7.5) Ur Specific [place] 1.010 (1.000-1.030) Urine Protein Negative (Negative) Urine Glucose (UA) Negative (Negative) Urine Ketones Negative (Negative) Urine Blood Negative (Negative) Urine Nitrite Negative (Negative) Urine Bilirubin Negative (Negative) Urine Urobilinogen Negative (Negative) Ur Leukocyte Esterase Negative (Negative) SARS-CoV-2 (PCR) NEGATIVE (Negative) Influenza Type A (PCR) Negative (Neg) Influenza Type B (PCR) Negative (Neg) RSV (RT-PCR) Negative (Neg) Imaging Data Attestation: I personally reviewed and interpreted this imaging study as follows: My Impression: Chest x-ray negative. Airway clear. No pneumothorax. No consolidation. No cardiomegaly or cephalization.. No free air under the diaphragm. No fractures of the skeletal structures. Radiologist's Impression: Chest X-Ray 07/15/22 14:19 XR chest 1V portable HISTORY: 76 years-old Female Sepsis [breast with sepsis COMPARISON: 04/29/2022 TECHNIQUE: AP view of the chest FINDINGS: Cardiac silhouette is enlarged. Mild right hemidiaphragmatic elevation. Hiatal hernia. No pneumothorax, pleural effusion, airspace consolidation or pulmonary edema. Degenerative changes of the shoulders and spine. IMPRESSION: 1. Cardiomegaly without acute process. 2. Hiatal hernia. ACT 112: Negative or not required by law. The above report was generated using voice recognition software. It may contain grammatical, syntax or spelling errors. Electronically signed by: Alfredito Cazares M.D. 07/15/2022 3:18 PM Abdomen/Pelvis CT 07/15/22 14:20 CT SCAN OF THE ABDOMEN AND PELVIS WITH IV CONTRAST CLINICAL HISTORY: Generalized abdominal pain. Nausea and vomiting. Fever. COMPARISON STUDY: No priors. TECHNIQUE: Following the IV administration of 85 cc of Optiray 350, CT scan of the abdomen and pelvis is performed from the lung bases to the proximal femora. Images are reviewed in the axial, sagittal, and coronal planes. IV contrast was administered without complication. A dose lowering technique was utilized adhering to the principles of ALARA. CT DOSE: 471.59 mGycm FINDINGS: Lung bases: The heart is top normal in size and without pericardial effusion. The lung bases are clear noting bibasilar scarring/atelectasis. There is a mod erate hiatal hernia. Liver: The contrast-enhanced liver is top normal in size and demonstrates dif fusely diminished attenuation indicating steatosis. There is no intrahepatic biliary ductal dilatation. The hepatic veins and portal veins are patent. Gallbladder: The gallbladder wall appears thickened. Spleen: Normal in size and attenuation. Pancreas: Unremarkable. Adrenal glands: Unremarkable. Kidneys: The contrast enhanced kidneys are normal in size and without hydronephrosis. The kidneys enhance symmetrically. Scattered subcentimeter cortical hypodensities likely represent cysts but are too small for definitive characterization. Abdominal vasculature: The abdominal aorta is normal in course and caliber noting mild atherosclerotic calcification. Bowel: There is moderate colonic diverticulosis without CT evidence of acute diverticulitis. No bowel obstruction is seen. Liquid stool seen throughout the colon. There are also fluid-filled loops of small bowel. No bowel wall t hickening or surrounding inflammation is seen. The distal stomach appears thickened and edematous. No surrounding inflammation is seen. A small duodenal diverticulum is incidentally noted. The appendix is well-visualized and normal. Peritoneum: There is no intraperitoneal free air or abdominal ascites. There is a fat-containing umbilical hernia. Lymphadenopathy: None. Pelvic viscera: The bladder, uterus, and adnexa are normal as visualized. Skeletal structures: The skeletal structures are osteopenic. There is mild lumbosacral spondylosis. No lytic or blastic lesions are seen. IMPRESSION: 1. Liquid stool is seen throughout the colon, and there are also fluid-filled loops of small bowel. There is no significant bowel wall thickening or surrounding inflammation. Correlate clinically for evidence of a nonspecific enterocolitis. 2. There is nonspecific gallbladder wall thickening. No significant surrounding inflammation is seen. Correlate with clinical and laboratory findings. If there is clinical concern for cholecystitis a right upper quadrant ultrasound could be obtained. 3. The distal stomach appears mildly thick-walled and edematous. No surrounding inflammation is seen. The stomach is not well evaluated by CT. Correlate clinically for evidence of gastritis or less likely ulcer disease. This could be further assessed with endoscopy if clinically warranted. 4. Moderate hiatal hernia. 5. Colonic diverticulosis without CT evidence of acute diverticulitis. 6. Additional findings as above. ACT 112: Negative or not required by law. Electronically signed by: Favian Hewitt M.D. 07/15/2022 4:53 PM Gallbladder Ultrasound 07/15/22 17:12 ULTRASOUND RIGHT UPPER QUADRANT ABDOMEN CLINICAL HISTORY: Right upper quadrant abdominal pain. COMPARISON STUDY: Abdominal CT dated 07/15/2022. TECHNIQUE: Real-time, grayscale, and color flow sonography of the right upper quadrant of the abdomen was performed. Images are reviewed in the transverse and longitudinal planes. FINDINGS: Liver: The liver is normal in size and echotexture. There is no intrahepatic biliary ductal dilatation. The main portal vein is patent. Gallbladder: The gallbladder is distended, and the wall appears thickened and edematous. This measures up to 4 mm. No shadowing gallstones are identified. There is no pericholecystic fluid. A sonographic Cui's sign is reportedly absent. The common bile duct measures up to 0.6 cm in diameter. Pancreas: Visualized portions of the pancreatic head and body are normal in appearance. Right kidney: Survey images of the right kidney demonstrate normal size and echotexture. There is no hydronephrosis. Ascites: None. IMPRESSION: 1. The gallbladder is distended and the wall appears mildly thickened and edematous. No shadowing gallstones are identified and a sonographic Cui's sign is reportedly absent. Findings are considered low suspicion for acute cholecystitis. If there is clinical concern for acalculous cholecystitis a nuclear hepatobiliary scan should be considered. 2. There is no intra or extrahepatic biliary ductal dilatation. ACT 112: Negative or not required by law. Electronically signed by: Favian Hewitt M.D. 07/15/2022 5:59 PM ECG Data Attestation: I personally reviewed and interpreted this ECG as follows: Indication: other (sepsis) Rate (beats per minute): 91 Rhythm: normal sinus Findings: no ST depression, no ST elevation or no prolonged QT Additional Comments: QRS 74 MDM Narrative 1413: The patient was evaluated in room B4. A complete history and physical exam was performed Cardiac monitoring: An order was placed for continuous cardiac monitoring. The monitor shows a rate of 90 with sinus rhythm interpreted by me 1715: Vital signs stable. Labs show leukocytosis of 17.69 with 16.73 n eutrophils. Lactic acid elevated at 2.9. 1500 cc normal saline bolus given to the patient based off her ideal body weight. CT abdomen pelvis states that there is liquid stool throughout most of the colon suggestive of an enterocolitis. There is nonspecific gallbladder wall thickening no significant surrounding inflammation if concern for cholecystitis recommended right upper quadrant ultrasound. Will obtain ultrasound. Chest x-ray negative. 1900: Vital signs stable. Ultrasound of the right upper quadrant shows a distended gallbladder with thickened rojas and in the mattress no shadowing gallstones Cui sign absent. Repeat lactic acid status post 30 cc/kg bolus is within normal limits. [facility] Dr. Jackson notified. Patient still has not given a stool sample. We will hold off on antibiotics at this time as the patient's lactic acid is improved and if the patient has a viral GI illness causing diarrhea or bacterial infection where antibiotics are not indicated or could be deleterious such as E. coli 0157. Discussed with [facility] hospitalist Dr. Jackson teamwho will evaluate the patient. Impression & Plan Diarrhea, Nausea & vomiting, Abdominal pain Discharge Plan Visit Data Chief Complaint: Illness Stated Complaint: NAUSEA, VOMITING, DIARRHEA ED Provider: Cody Moffett Discharge Problem: Diarrhea, Nausea & vomiting, Abdominal pain Patient Disposition: Admitted As Inpatient Forms Stand Alone Forms: My [facility] Prescriptions Prescriptions: No Action nadolol 80 mg tablet 80 mg PO QAM Qty: 90 3RF omeprazole 20 mg capsule,delayed release(DR/EC) 20 mg PO QAM Qty: 90 3RF Rx Instructions: TAKE 1 CAPSULE BY MOUTH EVERY DAY IN THE MORNING. atorvastatin 20 mg tablet 20 mg PO HS Qty: 30 11RF (DME) glucometer- one touch See Rx Instructions .Route .MEDSUPPLY Qty: 1 0RF Rx Instructions: test 3-4 x a week (DME) lancets See Rx Instructions .Route .MEDSUPPLY Qty: 1 0RF Rx Instructions: as directed (DME) blood sugar diagnostic Strip See Rx Instructions .Route Qty: 50 4RF Rx Instructions: test 3-4 x a week vitamin Y25-byxfs acid 500-400 mcg tablet 1 tab PO QDL Adult 50 Plus Probiotic 4 billion cell capsule 4,000 mmu cells PO DAILY polyvinyl alcohol-povidone 2.7-2 % drops 1 drp OPB QAM PRN (Reason: Eye Irritation) ascorbic acid (vitamin C) 500 mg tablet 500 mg PO QAM calcium carbonate 600 mg calcium (1,500 mg) tablet 600 mg PO BID cholecalciferol (vitamin D3) 1,000 unit capsule 1,000 units PO QAM flaxseed oil 1,000 mg capsule 1,000 mg PO BID Qty: 1 omega-3 acid ethyl esters 1 gram capsule 1 cap PO QAM Qty: 1 sodium chloride 5 % ointment 1 appln OPB HS lorazepam 0.5 mg tablet 0.5 mg PO DAILY PRN (Reason: anxiety) Qty: 10 0RF hydroxyzine HCl 25 mg tablet 25 mg PO TID PRN (Reason: anxiety) Qty: 90 1RF aspirin 81 mg Tablet,Delayed Release (Dr/Ec) 81 mg PO QAM cinnamon bark [Cinnamon] 500 mg Capsule 500 mg PO BIDM trazodone 100 mg tablet 100 mg PO HS PRN (Reason: insomnia) Referrals Referrals: Shey Penny CRNP [Primary Care Provider] -
[2022-07-15] MEDS ORDERED: SODIUM CHLORIDE 0.9% 1000ML 1,000 ML IV SCH (14:30)
--- NOTE | 2022-07-15 15:20 | XRay Report ---
XR chest 1V portable HISTORY: 76 years-old Female Sepsis [breast with sepsis COMPARISON: 04/29/2022 TECHNIQUE: AP view of the chest FINDINGS: Cardiac silhouette is enlarged. Mild right hemidiaphragmatic elevation. Hiatal hernia. No pneumothora x, pleural effusion, airspace consolidation or pulmonary edema. Degenerative changes of the shoulders and spine. IMPRESSION: 1. Cardiomegaly without acute process. 2. Hiatal hernia. ACT 112: Negative or not required by law. The above report was generated using voice recognition software. It may contain grammatical, syntax o r spelling errors. Electronically signed by: Alfredito Cazares M.D. 07/15/2022 3:18 PM
[2022-07-15 15:50] LABS: Base Excess VBG 1.3 mEq/L; HCO3 VBG 26 mmol/L; Oxygen Saturation VBG 60.5 %; PCO2 VBG 40 mmHg (38-50); PO2 VBG 34 mmHg; pH VBG 7.42 (7.36-7.41)
[2022-07-15 15:57] LABS: Hematocrit (blood only) 42.1 % (37.0-47.0); Hemoglobin 14.4 g/dl (12.0-16.0); Mean Corpuscular Hemoglobin 33.6 pg (25.0-34.0); Mean Corpuscular Hgb Conc 34.2 g/dL (32.0-36.0); Mean Corpuscular Volume 98.1 fL (80.0-100.0); Mean Platelet Volume 8.7 fL (9.4-12.4); Platelet Count 348 K/uL (130-400); RDW Coefficient of Variation 12.7 % (11.5-14.5); RDW Standard Deviation 45.6 fL (36.4-46.3); Red Blood Count 4.29 M/uL (4.20-5.40); White Blood Count 17.69 K/ul (4.8-10.8)
[2022-07-15 16:12] LABS: Albumin Level 4.1 gm/dl (3.4-5.0); BUN Creatinine Ratio 33.3 (10-20); Bilirubin Direct 0.1 mg/dl (0-0.2); Bilirubin,Total 0.7 mg/dl (0.2-1.0); Calcium 8.8 mg/dl (8.6-10.3); Creatinine Clr Calc Pharmacy 55.7 ml/min; Est GFR (Non-African American) 78.5 ml/min; Magnesium 1.7 mg/dl (1.7-2.4); Potassium 3.6 mmol/L (3.5-5.1); Total Protein 6.8 gm/dl (6.0-8.3)
[2022-07-15 16:17] LABS: Troponin I High Sensitivity 5.3 pg/ml (0-14)
[2022-07-15 16:24] LABS: Influenza A virus by PCR Negative (Neg); Influenza B virus by PCR Negative (Neg); RSV by PCR Negative (Neg); SARS CoV2 RNA(COVID-19) Ceph NEGATIVE (Negative)
[2022-07-15 16:28] LABS: Partial Thromboplastin Ratio 0.9; Prothrombin Time 10.6 Seconds (9.0-12.0)
[2022-07-15] MEDS ORDERED: SODIUM CHLORIDE 0.9% 1000ML 500 ML IV ONE (16:31)
[2022-07-15] MEDS ORDERED: OPTIRAY 350 100ml IV ONE (16:40)
[2022-07-15 16:43] LABS: Basophils # (auto) 0.02 K/uL (0-0.2); Basophils % (auto) 0.1 %; Immature Granulocytes # (auto) 0.09 K/uL (0.01-0.20); Immature Granulocytes % (auto) 0.5 %; Lymphocytes # (auto) 0.45 K/uL (1.2-3.4); Lymphocytes % (auto) 2.5 %; Monocytes % (auto) 2.3 %; Neutrophils # (auto) 16.73 K/uL (1.40-6.50); Neutrophils % (auto) 94.6 %; Polychromasia 1+; Toxic Vacuolation 1+
--- NOTE | 2022-07-15 16:56 | CT Scan Report ---
CT SCAN OF THE ABDOMEN AND PELVIS WITH IV CONTRAST CLINICAL HISTORY: Generalized abdominal pain. Nausea and vomiting. Fever. COMPARISON STUDY: No priors. TECHNIQUE: Following the IV administration of 85 cc of Optiray 350, CT scan of the abdomen and pelvi s is performed from the lung bases to the proximal femora. Images are reviewed in the axial, sagittal , and coronal planes. IV contrast was administered without complication. A dose lowering technique wa s utilized adhering to the principles of ALARA. CT DOSE: 471.59 mGycm FINDINGS: Lung bases: The heart is top normal in size and without pericardial effusion. The lung bases are cameron r noting bibasilar scarring/atelectasis. There is a moderate hiatal hernia. Liver: The contrast-enhanced liver is top normal in size and demonstrates diffusely diminished attenu ation indicating steatosis. There is no intrahepatic biliary ductal dilatation. The hepatic veins and portal veins are patent. Gallbladder: The gallbladder wall appears thickened. Spleen: Normal in size and attenuation. Pancreas: Unremarkable. Adrenal glands: Unremarkable. Kidneys: The contrast enhanced kidneys are normal in size and without hydronephrosis. The kidneys enh ance symmetrically. Scattered subcentimeter cortical hypodensities likely represent cysts but are too small for definitive characterization. Abdominal vasculature: The abdominal aorta is normal in course and caliber noting mild atheroscleroti c calcification. Bowel: There is moderate colonic diverticulosis without CT evidence of acute diverticulitis. No bowel obstruction is seen. Liquid stool seen throughout the colon. There are also fluid-filled loops of sm all bowel. No bowel wall thickening or surrounding inflammation is seen. The distal stomach appears t hickened and edematous. No surrounding inflammation is seen. A small duodenal diverticulum is inciden tally noted. The appendix is well-visualized and normal. Peritoneum: There is no intraperitoneal free air or abdominal ascites. There is a fat-containing umbi lical hernia. Lymphadenopathy: None. Pelvic viscera: The bladder, uterus, and adnexa are normal as visualized. Skeletal structures: The skeletal structures are osteopenic. There is mild lumbosacral spondylosis. N o lytic or blastic lesions are seen. IMPRESSION: 1. Liquid stool is seen throughout the colon, and there are also fluid-filled loops of small bowel. T here is no significant bowel wall thickening or surrounding inflammation. Correlate clinically for ev idence of a nonspecific enterocolitis. 2. There is nonspecific gallbladder wall thickening. No significant surrounding inflammation is seen. Correlate with clinical and laboratory findings. If there is clinical concern for cholecystitis a ri t upper quadrant ultrasound could be obtained. 3. The distal stomach appears mildly thick-walled and edematous. No surrounding inflammation is seen. The stomach is not well evaluated by CT. Correlate clinically for evidence of gastritis or less like ly ulcer disease. This could be further assessed with endoscopy if clinically warranted. 4. Moderate hiatal hernia. 5. Colonic diverticulosis without CT evidence of acute diverticulitis. 6. Additional findings as above. ACT 112: Negative or not required by law. Electronically signed by: Favian Hewitt M.D. 07/15/2022 4:53 PM
[2022-07-15 17:26] LABS: Appearance Urine Clear (Clear); Bilirubin Urine Negative (Negative); Blood Urine Negative (Negative); Color Urine Yellow; Glucose Urine UA Negative (Negative); Ketones Urine Negative (Negative); Leukocyte Esterase Urine Negative (Negative); Nitrite Urine Negative (Negative); Protein Urine Negative (Negative); Urobilinogen Urine Negative (Negative)
--- NOTE | 2022-07-15 18:01 | Ultrasound Report ---
ULTRASOUND RIGHT UPPER QUADRANT ABDOMEN CLINICAL HISTORY: Right upper quadrant abdominal pain. COMPARISON STUDY: Abdominal CT dated 07/15/2022. TECHNIQUE: Real-time, grayscale, and color flow sonography of the right upper quadrant of the abdomen was performed. Images are reviewed in the transverse and longitudinal planes. FINDINGS: Liver: The liver is normal in size and echotexture. There is no intrahepatic biliary ductal dilatatio n. The main portal vein is patent. Gallbladder: The gallbladder is distended, and the wall appears thickened and edematous. This measure s up to 4 mm. No shadowing gallstones are identified. There is no pericholecystic fluid. A sonographi c Cui's sign is reportedly absent. The common bile duct measures up to 0.6 cm in diameter. Pancreas: Visualized portions of the pancreatic head and body are normal in appearance. Right kidney: Survey images of the right kidney demonstrate normal size and echotexture. There is no hydronephrosis. Ascites: None. IMPRESSION: 1. The gallbladder is distended and the wall appears mildly thickened and edematous. No shadowing gal lstones are identified and a sonographic Cui's sign is reportedly absent. Findings are considered low suspicion for acute cholecystitis. If there is clinical concern for acalculous cholecystitis a nu clear hepatobiliary scan should be considered. 2. There is no intra or extrahepatic biliary ductal dilatation. ACT 112: Negative or not required by law. Electronically signed by: Favian Hewitt M.D. 07/15/2022 5:59 PM
--- NOTE | 2022-07-15 19:51 | History & Physical Report ---
Date of Service July 15, 2022 Assessment & Plan (1) SIRS (systemic inflammatory response syndrome): Plan: 76 yo female PMHx of insomnia, GERD, anxiety, HLD, MVP, and HTN presents with 1 day of illness. #Nausea, vomiting, diarrhea #SIRS criteria -Presents with 1 day N/V/D. Diarrhea resolved as of last night. Coffee ground emesis this morning. Dark stool in ED. Meets SIRS criteria (tachycardic, afebrile) without obvious source of infection. Leukocytosis 17, neutrophils 16. Lactate initially 2.7, repeat 1.8. LFTs wnl. Lipase neg. Procal neg. Clinically pt abdomen is nontender. -Low suspicion for acute cholecystitis. More likely viral enteritis. -Chest XR: no acute process -CT A/P: Liquid stool is seen throughout the colon, and there are also fluid- filled loops of small bowel. There is no significant bowel wall thickening or surrounding inflammation. Nonspecific gallbladder wall thickening. No significant surrounding inflammation is seen. Distal stomach appears mildly thick-walled and edematous. No surrounding inflammation is seen. No acute diverticulitis. -Gallbladder US: distended and the wall appears mildly thickened and edematous. No shadowing gallstones are identified and a sonographic Cui's sign is reportedly absent. -GI PCR pending. FOBT pending. Blood cx pending. -Received 2L NSS in ED. Cont. on maintenance -IV acetaminophen, zofran, protonix. -defer abx at this time -consider GI consult for possible HIDA scan #HLD -cont. statin #HTN #Mitral valve prolapse -cont. nadolol #Anxiety -cont. hydroxyzine prn #Insomnia -cont. trazodone DVT ppx: SCDs; avoid chemical, FOBT pending FEN/GI: NPO Code Status: Full Dispo: PCU (2) Nausea & vomiting: (3) Dyslipidemia: (4) Mitral valve prolapse syndrome: (5) Insomnia: (6) Anxiety: History of Present Illness Chief Complaint: nausea, vomiting, diarrhea Primary Care Provider: LASHELL Clements 76 yo female PMHx of insomnia, GERD, anxiety, HLD, MVP, and HTN presents with 1 day of illness. Last night started having watery diarrhea, vomiting, and nausea. Diarrhea resolved this morning but had persistent vomiting which she states was black this morning. Associated fatigue and loss of appetite. Denies fever, cough, congestion, chest pain, sob, abd pain, dysuria. She did eat burger meat prior to symptom onset but says meat was fresh. In the ED, she did have a fever and states her BM was black as well. Did not take peptol bismol. No h/o c. diff. No h/o of GI bleed. Cologuard last year was negative. Allergies Allergy/AdvReac Type Severity Reaction Status Date / Time Sulfa (Sulfonamide Allergy Unknown Unknown Verified 07/02/22 13:26 Antibiotics) melatonin AdvReac Mild Diarrhea Verified 07/02/22 13:26 Home Medications Medication Instructions Recorded Confirmed Type polyvinyl alcohol-povidone 2.7 %-2 1 drp OPB QAM PRN Eye Irritation 10/19/18 07/15/22 History % eye drops ascorbic acid (vitamin C) 500 mg 500 mg PO QAM 02/22/19 07/15/22 History tablet calcium carbonate 600 mg calcium 600 mg PO BID 02/22/19 07/15/22 History (1,500 mg) tablet cholecalciferol (vitamin D3) 25 1,000 units PO QAM 02/22/19 07/15/22 History mcg (1,000 unit) capsule flaxseed oil 1,000 mg capsule 1,000 mg PO BID #1 cap 02/22/19 07/15/22 History omega-3 acid ethyl esters 1 gram 1 cap PO QAM #1 cap 02/22/19 07/15/22 History capsule sodium chloride 5 % eye ointment 1 appln OPB HS 02/22/19 07/15/22 History aspirin 81 mg tablet,delayed 81 mg PO QAM 04/11/19 07/15/22 History release cinnamon bark 500 mg capsule 500 mg PO BIDM 04/11/19 07/15/22 History (Cinnamon) lactobacillus combination no.9 4 4,000 mmu cells PO DAILY 04/23/19 07/15/22 History billion cell capsule (Adult 50 Plus Probiotic) vitamin B12 500 mcg-folic acid 400 1 tab PO QDL 04/23/19 07/15/22 History mcg tablet nadolol 80 mg tablet 80 mg PO QAM #90 tabs 01/24/22 07/15/22 Rx omeprazole 20 mg capsule,delayed 20 mg PO QAM #90 caps 03/11/22 07/15/22 Rx release atorvastatin 20 mg tablet 20 mg PO HS #30 tabs 04/12/22 07/15/22 Rx blood sugar diagnostic #50 ea 04/26/22 07/02/22 Rx glucometer- one touch #1 ea 04/26/22 07/02/22 Rx lancets #1 ea 04/26/22 07/02/22 Rx hydroxyzine HCl 25 mg tablet 25 mg PO TID PRN anxiety #90 tabs 05/15/22 07/15/22 Rx lorazepam 0.5 mg tablet 0.5 mg PO DAILY PRN anxiety #10 07/02/22 07/15/22 Rx tabs trazodone 100 mg tablet 100 mg PO HS PRN insomnia 07/15/22 07/15/22 History Past Med/Surg History Medical History Anxiety Chronic reflux esophagitis Dyslipidemia Hip pain, left Insomnia Lumbar radiculopathy Mitral valve prolapse syndrome Osteoarthritis of left hip Spinal stenosis, lumbar region with neurogenic claudication Surgical History No pertinent past surgical history Family History Mother Myocardial infarction Denies family history of Ovarian cancer Prostate cancer Breast cancer Colorectal cancer Social History Smoking Status: Never smoker Second Hand Exposure: No; Do You Dip or Chew Tobacco: No; Tobacco Cessation Education Requested by Patient: No Hx Alcohol Use: No Hx Substance Use: No Preferred Language: Croatian Communication Ability: Effective [employer] Experience Strategy Required: No Beliefs That Will Affect Care: None marital status: Single Current Living Situation: Alone current occupational status: retired How many Children do You have: 0 Other Information That Helps Us Care for You: No Feels Safe at Home: Yes Safety Concerns: Feels Safe At This Time Childhood Exposure to Second-Hand Smoke: No caffeine: No Dental Care, Regularly: Yes Physical Activity Frequency: 3-4 Times per Week Seatbelt Use: always Sunscreen Use: Yes Assistive Devices: Glasses Review of Systems Review of Systems: All systems reviewed & are unremarkable except as noted in HPI & below Physical Exam Physical Exam: Constitutional: in no acute distress, pleasant, intact memory. AOx3. Vitals as above. HEENT: No scleral injection or discharge.Dry mucous membranes. Clear or opharynx without exudate. Neck: Supple without lymphadenopathy or thyromegaly. Trachea midline. Lungs: Clear to auscultation bilaterally with good effort. Cardiac: Regular rate and rhythm. No extremity edema. 2+ distal peripheral pulses. Abdomen: Bowel sounds present. Soft, nontender, and nondistended.No guarding. Neg murphys. No hepatosplenomegaly. MSK: No cyanosis or clubbing. Extremities motor strength 5/5. Skin: No rashes, warm, dry. Neurologic: no focal deficits Results & Data Results & Data Vital Signs (Past 12 Hours) Vital Signs Temp Pulse Pulse Resp BP BP Pulse Ox 07/15/22 18:39 104 H 07/15/22 17:15 101 H 19 07/15/22 17:00 102 H 24 07/15/22 16:45 146/82 H 07/15/22 16:45 103 H 23 96 07/15/22 16:30 95 H 19 96 07/15/22 16:30 134/82 07/15/22 16:15 148/83 H 07/15/22 16:15 96 H 22 95 07/15/22 16:00 93 H 19 96 07/15/22 16:00 147/86 H 07/15/22 15:45 93 H 20 97 07/15/22 15:45 135/83 07/15/22 15:30 90 22 07/15/22 15:00 94 H 18 07/15/22 14:30 86 20 97 07/15/22 14:30 126/74 07/15/22 14:21 88 23 96 07/15/22 14:49 97 H 18 96 07/15/22 14:34 101 H 18 96 07/15/22 14:21 97 H 07/15/22 14:30 89 18 126/74 98 07/15/22 14:30 89 18 98 07/15/22 14:14 37.7 C H 97 H 18 137/87 95 07/15/22 14:14 38.3 C H 98 H 18 137/87 95 O2 Del Method 07/15/22 18:39 07/15/22 17:15 07/15/22 17:00 07/15/22 16:45 07/15/22 16:45 07/15/22 16:30 07/15/22 16:30 07/15/22 16:15 07/15/22 16:15 07/15/22 16:00 07/15/22 16:00 07/15/22 15:45 07/15/22 15:45 07/15/22 15:30 07/15/22 15:00 07/15/22 14:30 07/15/22 14:30 07/15/22 14:21 07/15/22 14:49 Room Air 07/15/22 14:34 Room Air 07/15/22 14:21 07/15/22 14:30 Room Air 07/15/22 14:30 Room Air 07/15/22 14:14 Room Air 07/15/22 14:14 Room Air Laboratory Results Laboratory Results WBC 17.69 K/ul (4.8-10.8) H 07/15/22 15:30 RBC 4.29 M/uL (4.20-5.40) 07/15/22 15:30 Hgb 14.4 g/dl (12.0-16.0) 07/15/22 15:30 Hct 42.1 % (37.0-47.0) 07/15/22 15:30 MCV 98.1 fL (80.0-100.0) 07/15/22 15:30 MCH 33.6 pg (25.0-34.0) 07/15/22 15:30 MCHC 34.2 g/dL (32.0-36.0) 07/15/22 15:30 RDW Std Deviation 45.6 fL (36.4-46.3) 07/15/22 15:30 RDW Coeff of Abril 12.7 % (11.5-14.5) 07/15/22 15:30 Plt Count 348 K/uL (130-400) 07/15/22 15: MPV 8.7 fL (9.4-12.4) L 07/15/22 15:30 Immature Gran % (Auto) 0.5 % 07/15/22 15:30 Neut % (Auto) 94.6 % 07/15/22 15:30 Lymph % (Auto) 2.5 % 07/15/22 15:30 [place] % (Auto) 2.3 % 07/15/22 15:30 Eos % (Auto) 0.0 % 07/15/22 15:30 Baso % (Auto) 0.1 % 07/15/22 15:30 Neut # (Auto) 16.73 K/uL (1.40-6.50) H 07/15/22 15:30 Lymph # (Auto) 0.45 K/uL (1.2-3.4) L 07/15/22 15:30 [place] # (Auto) 0.40 K/uL (0.11-0.59) 07/15/22 15:30 Eos # (Auto) 0.00 K/uL (0-0.50) 07/15/22 15:30 Baso # (Auto) 0.02 K/uL (0-0.2) 07/15/22 15:30 Immature Gran # (Auto) 0.09 K/uL (0.01-0.20) 07/15/22 15:30 Toxic Vacuolation 1+ 07/15/22 15:30 Polychromasia 1+ 07/15/22 15:30 PT 10.6 Seconds (9.0-12.0) 07/15/22 15:30 INR 1.0 (0.9-1.1) 07/15/22 15:30 APTT 26.0 Seconds (21.0-31.0) 07/15/22 15:30 PTT Ratio 0.9 07/15/22 15:30 VBG pH 7.42 (7.36-7.41) H 07/15/22 15:30 VBG pCO2 40 mmHg (38-50) 07/15/22 15:30 VBG pO2 34 mmHg 07/15/22 15:30 VBG HCO3 26 mmol/L 07/15/22 15:30 VBG O2 Saturation 60.5 % 07/15/22 15:30 VBG Base Excess 1.3 mEq/L 07/15/22 15:30 Sodium 140 mmol/L (136-145) 07/15/22 15:30 Potassium 3.6 mmol/L (3.5-5.1) 07/15/22 15:30 Chloride 105 mmol/L (98-107) 07/15/22 15:30 Carbon Dioxide 25 mmol/L (21-32) 07/15/22 15:30 Anion Gap 10 (3-11) 07/15/22 15:30 BUN 25 mg/dl (6-23) H 07/15/22 15:30 Creatinine 0.75 mg/dl (0.6-1.2) 07/15/22 15:30 Est Cr Clr Drug Dosing 55.7 ml/min 07/15/22 15:30 Est GFR ( Amer) 91.0 ml/min 07/15/22 15:30 Est GFR (Non-Af Amer) 78.5 ml/min 07/15/22 15:30 BUN/Creatinine Ratio 33.3 (10-20) H 07/15/22 15:30 Glucose 106 mg/dl (70-99(Fasting)) H 07/15/22 15:30 Lactate 1.8 mmol/L (0.4-2.0) 07/15/22 18:31 Calcium 8.8 mg/dl (8.6-10.3) 07/15/22 15:30 Magnesium 1.7 mg/dl (1.7-2.4) 07/15/22 15:30 Total Bilirubin 0.7 mg/dl (0.2-1.0) 07/15/22 15:30 Direct Bilirubin 0.1 mg/dl (0-0.2) 07/15/22 15:30 AST 20 U/L (13-39) 07/15/22 15:30 ALT 14 U/L (7-52) 07/15/22 15:30 Alkaline Phosphatase 51 U/L (34-104) 07/15/22 15:30 Troponin I High Sens 5.3 pg/ml (0-14) 07/15/22 15:30 Total Protein 6.8 gm/dl (6.0-8.3) 07/15/22 15:30 Albumin 4.1 gm/dl (3.4-5.0) 07/15/22 15:30 Lipase 19 U/L (11-82) 07/15/22 15:30 Procalcitonin 0.29 ng/ml (0-0.5) 07/15/22 15:30 Urine Color Yellow 07/15/22 16:55 Urine Appearance Clear (Clear) 07/15/22 16:55 Urine pH 5.0 (4.5-7.5) 07/15/22 16:55 Ur Specific [place] 1.010 (1.000-1.030) 07/15/22 16:55 Urine Protein Negative (Negative) 07/15/22 16:55 Urine Glucose (UA) Negative (Negative) 07/15/22 16:55 Urine Ketones Negative (Negative) 07/15/22 16:55 Urine Blood Negative (Negative) 07/15/22 16:55 Urine Nitrite Negative (Negative) 07/15/22 16:55 Urine Bilirubin Negative (Negative) 07/15/22 16:55 Urine Urobilinogen Negative (Negative) 07/15/22 16:55 Ur Leukocyte Esterase Negative (Negative) 07/15/22 16:55 SARS-CoV-2 (PCR) NEGATIVE (Negative) 07/15/22 Unknown Influenza Type A (PCR) Negative (Neg) 07/15/22 Unknown Influenza Type B (PCR) Negative (Neg) 07/15/22 Unknown RSV (RT-PCR) Negative (Neg) 07/15/22 Unknown Impressions Chest X-Ray 07/15/22 14:19 XR chest 1V portable HISTORY: 76 years-old Female Sepsis [breast with sepsis COMPARISON: 04/29/2022 TECHNIQUE: AP view of the chest FINDINGS: Cardiac silhouette is enlarged. Mild right hemidiaphragmatic elevation. Hiatal hernia. No pneumothorax, pleural effusion, airspace consolidation or pulmonary edema. Degenerative changes of the shoulders and spine. IMPRESSION: 1. Cardiomegaly without acute process. 2. Hiatal hernia. ACT 112: Negative or not required by law. The above report was generated using voice recognition software. It may contain grammatical, syntax or spelling errors. Electronically signed by: Alfredito aCzares M.D. 07/15/2022 3:18 PM Abdomen/Pelvis CT 07/15/22 14:20 CT SCAN OF THE ABDOMEN AND PELVIS WITH IV CONTRAST CLINICAL HISTORY: Generalized abdominal pain. Nausea and vomiting. Fever. COMPARISON STUDY: No priors. TECHNIQUE: Following the IV administration of 85 cc of Optiray 350, CT scan of the abdomen and pelvis is performed from the lung bases to the proximal femora. Images are reviewed in the axial, sagittal, and coronal planes. IV contrast was administered without complication. A dose lowering technique was utilized adhering to the principles of ALARA. CT DOSE: 471.59 mGycm FINDINGS: Lung bases: The heart is top normal in size and without pericardial effusion. The lung bases are clear noting bibasilar scarring/atelectasis. There is a moderate hiatal hernia. Liver: The contrast-enhanced liver is top normal in size and demonstrates diffusely diminished attenuation indicating steatosis. There is no intrahepatic biliary ductal dilatation. The hepatic veins and portal veins are patent. Gallbladder: The gallbladder wall appears thickened. Spleen: Normal in size and attenuation. Pancreas: Unremarkable. Adrenal glands: Unremarkable. Kidneys: The contrast enhanced kidneys are normal in size and without hydronephrosis. The kidneys enhance symmetrically. Scattered subcentimeter cortical hypodensities likely represent cysts but are too small for definitive characterization. Abdominal vasculature: The abdominal aorta is normal in course and caliber noting mild atherosclerotic calcification. Bowel: There is moderate colonic diverticulosis without CT evidence of acute diverticulitis. No bowel obstruction is seen. Liquid stool seen throughout the colon. There are also fluid-filled loops of small bowel. No bowel wall thickening or surrounding inflammation is seen. The distal stomach appears thickened and edematous. No surrounding inflammation is seen. A small duodenal diverticulum is incidentally noted. The appendix is well-visualized and normal. Peritoneum: There is no intraperitoneal free air or abdominal ascites. There is a fat-containing umbilical hernia. Lymphadenopathy: None. Pelvic viscera: The bladder, uterus, and adnexa are normal as visualized. Skeletal structures: The skeletal structures are osteopenic. There is mild lumbosacral spondylosis. No lytic or blastic lesions are seen. IMPRESSION: 1. Liquid stool is seen throughout the colon, and there are also fluid-filled loops of small bowel. There is no significant bowel wall thickening or surrounding inflammation. Correlate clinically for evidence of a nonspecific enterocolitis. 2. There is nonspecific gallbladder wall thickening. No significant surrounding inflammation is seen. Correlate with clinical and laboratory findings. If there is clinical concern for cholecystitis a right upper quadrant ultrasound could be obtained. 3. The distal stomach appears mildly thick-walled and edematous. No surrounding inflammation is seen. The stomach is not well evaluated by CT. Correlate clinically for evidence of gastritis or less likely ulcer disease. This could be further assessed with endoscopy if clinically warranted. 4. Moderate hiatal hernia. 5. Colonic diverticulosis without CT evidence of acute diverticulitis. 6. Additional findings as above. ACT 112: Negative or not required by law. Electronically signed by: Favian Hewitt M.D. 07/15/2022 4:53 PM Gallbladder Ultrasound 07/15/22 17:12 ULTRASOUND RIGHT UPPER QUADRANT ABDOMEN CLINICAL HISTORY: Right upper quadrant abdominal pain. COMPARISON STUDY: Abdominal CT dated 07/15/2022. TECHNIQUE: Real-time, grayscale, and color flow sonography of the right upper quadrant of the abdomen was performed. Images are reviewed in the transverse and longitudinal planes. FINDINGS: Liver: The liver is normal in size and echotexture. There is no intrahepatic biliary ductal dilatation. The main portal vein is patent. Gallbladder: The gallbladder is distended, and the wall appears thickened and edematous. This measures up to 4 mm. No shadowing gallstones are identified. There is no pericholecystic fluid. A sonographic Cui's sign is reportedly absent. The common bile duct measures up to 0.6 cm in diameter. Pancreas: Visualized portions of the pancreatic head and body are normal in appearance. Right kidney: Survey images of the right kidney demonstrate normal size and echotexture. There is no hydronephrosis. Ascites: None. IMPRESSION: 1. The gallbladder is distended and the wall appears mildly thickened and edematous. No shadowing gallstones are identified and a sonographic Cui's sign is reportedly absent. Findings are considered low suspicion for acute cholecystitis. If there is clinical concern for acalculous cholecystitis a nuclear hepatobiliary scan should be considered. 2. There is no intra or extrahepatic biliary ductal dilatation. ACT 112: Negative or not required by law. Electronically signed by: Favian Hewitt M.D. 07/15/2022 5:59 PM Code Status & VTE Plan VTE Prophylaxis Plan VTE Prophylaxis will be ordered: Yes Supervising Physician Co-Signing Physician Notes I personally saw and examined the patient. I verified all sparks points and agree with resident physician Dr Faheem Tripathi with the following exceptions and/or additions: 76 year old with sudden onset nausea, vomiting, diarrheal illness started last night. Unable to keep any fluid down therefore came to the ER today. Febrile in the ER. O/E A&Ox3, non septic appearing, HS RRR, no murmurs, Chest CTAB, Abdo SNT A/P SIRS / suspected viral gastroenteritis - technically meets for SIRS criteria but patient is non septic appearing and most likely viral gastroenteritis, pt is not immunosuppressed therefore empiric antibiotics deferred. Follow up stool PCR and c. diff testing. No Hx of c. diff, recent antibiotic use and CT suggesting affecting small bowel and stomach as well as colon therefore no need for empiric treatment for this. Black stool - FOB pending, agree with pantoprazole 40mg IV BID, Monitor CBC in AM. Resident Activity Tracking Resident Involvement: Resident Care Provided Care Provided: Adult Hospital Medicine
[2022-07-15] MEDS ORDERED: ONDANSETRON INJ 2 MG/ML 2 ML VIAL IV PRN (21:18)
[2022-07-15] MEDS ORDERED: traZODone HCL 100 MG TAB PO PRN (21:18)
[2022-07-15] MEDS ORDERED: hydrOXYzine HCl 25 MG TAB PO PRN (21:18)
[2022-07-15] MEDS ORDERED: ACETAMINOPHEN 1,000 MG/100 ML VIAL IV PRN (21:18)
[2022-07-15] MEDS: SODIUM CHLORIDE 0.9% 1000ML 1,000 ML IV SCH (21:47)
[2022-07-15] MEDS: PANTOprazole 40 MG in SYRINGE 0 ML IV SCH (21:51)
[2022-07-15] MEDS: ATORVASTATIN 20 MG TAB PO SCH (21:51)
[2022-07-15 22:18] LABS: Adenovirus F 40/41 PCR Not Detected (NotDetected); Astrovirus PCR Not Detected (NotDetected); Campylobacter PCR Not Detected (NotDetected); Cryptosporidium PCR Not Detected (NotDetected); Cyclospora cayetanensis PCR Not Detected (NotDetected); Entamoeba histolytica PCR Not Detected (NotDetected); Enteroaggregative E.coli(EAEC) Not Detected (NotDetected); Enteropathogenic E.coli (EPEC) Not Detected (NotDetected); Enterotoxigenic E.coli (ETEC) Not Detected (NotDetected); Giardia lamblia PCR Not Detected (NotDetected); Plesiomonas shigelloides PCR Not Detected (NotDetected); Rotavirus A PCR Not Detected (NotDetected); Salmonella PCR Not Detected (NotDetected); Sapovirus PCR Not Detected (NotDetected); Shiga-like Toxin E.coli (STEC) Not Detected (NotDetected); Shigella/Enteroinvasive E.coli Not Detected (NotDetected); Vibrio cholerae PCR Not Detected (NotDetected); Vibrio species PCR Not Detected (NotDetected); Yersinia enterocolitica PCR Not Detected (NotDetected)
[2022-07-15 22:53] LABS: Norovirus GI/GII PCR DETECTED (NotDetected)
[2022-07-16] MEDS: ONDANSETRON INJ 2 MG/ML 2 ML VIAL IV PRN ×3 (03:47→15:54)
[2022-07-16 07:41] LABS: Basophils # (auto) 0.02 K/uL (0-0.2); Basophils % (auto) 0.1 %; Hematocrit (blood only) 35.5 % (37.0-47.0); Hemoglobin 12.2 g/dl (12.0-16.0); Immature Granulocytes # (auto) 0.08 K/uL (0.01-0.20); Immature Granulocytes % (auto) 0.6 %; Lymphocytes # (auto) 0.78 K/uL (1.2-3.4); Lymphocytes % (auto) 5.5 %; Mean Corpuscular Hemoglobin 33.8 pg (25.0-34.0); Mean Corpuscular Hgb Conc 34.4 g/dL (32.0-36.0); Mean Corpuscular Volume 98.3 fL (80.0-100.0); Mean Platelet Volume 8.7 fL (9.4-12.4); Monocytes # (auto) 0.75 K/uL (0.11-0.59); Monocytes % (auto) 5.3 %; Neutrophils # (auto) 12.57 K/uL (1.40-6.50); Neutrophils % (auto) 88.5 %; Platelet Count 320 K/uL (130-400); RDW Coefficient of Variation 13.1 % (11.5-14.5); RDW Standard Deviation 47.1 fL (36.4-46.3); Red Blood Count 3.61 M/uL (4.20-5.40)
[2022-07-16 07:53] LABS: Albumin Globulin Ratio 1.9 (0.9-2); Albumin Level 3.7 gm/dl (3.4-5.0); BUN Creatinine Ratio 37.2 (10-20); Bilirubin,Total 0.3 mg/dl (0.2-1.0); Calcium 7.6 mg/dl (8.6-10.3); Creatinine Clr Calc Pharmacy 54.1 ml/min; Est GFR (African American) 86.8 ml/min; Est GFR (Non-African American) 74.9 ml/min; Magnesium 1.7 mg/dl (1.7-2.4); Potassium 3.8 mmol/L (3.5-5.1); Total Protein 5.7 gm/dl (6.0-8.3)
--- NOTE | 2022-07-16 08:10 | Billing Data ---
Date of Service July 15, 2022 Coding Level of Care Code 18217 INT INP/OBS CARE
[2022-07-16] MEDS: PANTOprazole 40 MG in SYRINGE 0 ML IV SCH ×2 (08:25→20:08)
[2022-07-16] MEDS: nadoloL 40 MG TAB PO SCH (08:25)
[2022-07-16] MEDS: SODIUM CHLORIDE 0.9% 1000ML 1,000 ML IV SCH (08:30)
[2022-07-16] MEDS ORDERED: ASPIRIN 81 MG ECTAB PO SCH (09:00)
--- NOTE | 2022-07-16 14:29 | Hospitalist Progress Note ---
Date of Service July 16, 2022 Assessment & Plan (1) Gastroenteritis due to norovirus: Plan: severe illness with resulting dehydration cont IV fluids increase rate to 125cc/hr to keep up with GI losses bmp/mag in am supportive care handout on norovirus given to patient keep NPO today, try clears in am (2) Sepsis: Plan: 2nd to #1 above (3) Pre-diabetes: Plan: 03/2022 with Hba1c <6% she is NPO and has had no caloric intake in days add dextrose to IV fluids (4) Chronic reflux esophagitis: Plan: cont IV ppi (5) Melena: Plan: question of reports "dark stools" and her fecal occult is positive however, H/H relatively stable cont to trend H/H cont PPI IV if stools remain dark, if H/H drop, etc --> GI consultation if she is having small amounts of upper GI blood loss suspect gastritis stop aspirin Plan niece updated at bedside DVT proph - low risk, and given concerns for possible melena, defer on chemical means at this time Admission and Anticipated Discharge Date Admission Date: July 15, 2022 Subjective continues with severe nausea, reflux symptoms and burping, copious liquid stools/diarrhea, abdominal upset and discomfort she is quite fatigued lips and mouth are dry she has no appetite tele overnight wnl Review of Systems Review of Systems: gen - no further fever cv - no cp, no orthopnea pulm - no dyspnea GI - no RUQ pain ; stools remain "dark" but no julita blood Physical Exam Physical Exam: gen - looks sick but nontoxic; looks dehydrated; lying flat in bed comfortably neck - no JVD mouth - lips and oral mucosa dry heart - RRR, s1 s2 lungs - CTA b/l abd - soft, minimally distended, BS+, no RUQ tenderness, no rebound ext - no edema, pulses 2+ b/l psych - a/o x 3 Results & Data Results & Data Vital Signs (Past 12 Hours) Vital Signs Temp Pulse Pulse Resp BP Pulse Ox O2 Del Method 07/16/22 11:47 36.5 C 76 18 148/83 H 94 Room Air 07/16/22 07:56 36.7 C 92 H 18 132/84 96 Room Air 07/16/22 07:56 87 07/16/22 03:04 36.9 C 96 H 22 133/81 96 Room Air Laboratory Results Laboratory Results - last 24 hr 07/16/22 07/16/22 07/16/22 07:08 07:08 14:28 WBC 14.20 H RBC 3.61 L Hgb 12.2 Hct 35.5 L MCV 98.3 MCH 33.8 MCHC 34.4 RDW Std Deviation 47.1 H RDW Coeff of Abril 13.1 Plt Count 320 MPV 8.7 L Immature Gran % (Auto) 0.6 Neut % (Auto) 88.5 Lymph % (Auto) 5.5 [place] % (Auto) 5.3 Eos % (Auto) 0.0 Baso % (Auto) 0.1 Neut # (Auto) 12.57 H Lymph # (Auto) 0.78 L [place] # (Auto) 0.75 H Eos # (Auto) 0.00 Baso # (Auto) 0.02 Immature Gran # (Auto) 0.08 Sodium 143 Potassium 3.8 Chloride 112 H Carbon Dioxide 24 Anion Gap 7 BUN 29 H Creatinine 0.78 Est Cr Clr Drug Dosing 54.1 Est GFR ( Amer) 86.8 Est GFR (Non-Af Amer) 74.9 BUN/Creatinine Ratio 37.2 H Glucose 123 H POC Glucose 92 Calcium 7.6 L Magnesium 1.7 Total Bilirubin 0.3 AST 17 ALT 13 Alkaline Phosphatase 41 Total Protein 5.7 L Albumin 3.7 Globulin 2.0 L Albumin/Globulin Ratio 1.9 Diagnostic Findings stool BioFire + for norovirus stool fecal occult blood + PG Care Time/CCT Total # of Minutes Spent Total Time Spent with Patient: Total time spent is greater than 50% in coordination of care (as documented) at patient's floor/unit and/or counseling patient: Coding Level of Care Code 27676 SUB INP/OBS CARE 2/35MIN Diagnoses Gastroenteritis due to norovirus A08.11 Sepsis A41.9 Pre-diabetes R73.03 Chronic reflux esophagitis K21.0 Melena K92.1
[2022-07-16] MEDS: D5W AND 1/2NSS + 20MEQ KCL 20 MEQ/1,000 ML BAG IV SCH (15:54)
[2022-07-16] MEDS: ATORVASTATIN 20 MG TAB PO SCH (20:08)
[2022-07-17] MEDS: D5W AND 1/2NSS + 20MEQ KCL 20 MEQ/1,000 ML BAG IV SCH ×3 (01:14→17:02)
--- NOTE | 2022-07-17 06:03 | Electrocardiogram Report ---
Test Reason : Blood Pressure : / mmHG Vent. Rate : 091 BPM Atrial Rate : 091 BPM P-R Int : 168 ms QRS Dur : 074 ms QT Int : 328 ms P-R-T Axes : 024 -12 082 degrees QTc Int : 403 ms Normal sinus rhythm Anterior infarct , age undetermined Nonspecific T wave abnormality Abnormal ECG When compared with ECG of 28-APR-2022 23:19, Anterior infarct is now Present Confirmed by Edi Sorto ([id number]) on 07/17/2022 6:03:23 AM Referred By: REFERRED SELF Confirmed By:Edi Sorto
[2022-07-17 07:13] LABS: Hematocrit (blood only) 31.2 % (37.0-47.0); Hemoglobin 10.9 g/dl (12.0-16.0); Mean Corpuscular Hemoglobin 34.1 pg (25.0-34.0); Mean Corpuscular Hgb Conc 34.9 g/dL (32.0-36.0); Mean Corpuscular Volume 97.5 fL (80.0-100.0); Mean Platelet Volume 8.9 fL (9.4-12.4); Platelet Count 273 K/uL (130-400); RDW Coefficient of Variation 13.1 % (11.5-14.5); RDW Standard Deviation 46.9 fL (36.4-46.3); White Blood Count 8.98 K/ul (4.8-10.8)
[2022-07-17 07:30] LABS: BUN Creatinine Ratio 24.6 (10-20); Calcium 7.5 mg/dl (8.6-10.3); Creatinine Clr Calc Pharmacy 60.7 ml/min; Est GFR (African American) 99.4 ml/min; Est GFR (Non-African American) 85.8 ml/min; Magnesium 1.7 mg/dl (1.7-2.4); Potassium 3.6 mmol/L (3.5-5.1)
[2022-07-17] MEDS: nadoloL 40 MG TAB PO SCH (09:26)
[2022-07-17] MEDS: PANTOprazole 40 MG in SYRINGE 0 ML IV SCH (09:30)
[2022-07-17 17:36] LABS: Hemoglobin 11.7 g/dl (12.0-16.0)
--- NOTE | 2022-07-17 19:25 | Hospitalist Progress Note ---
Date of Service July 17, 2022 Assessment & Plan (1) Gastroenteritis due to norovirus: Plan: severe illness with resulting dehydration -- improved diet advanced to full liquids and tolerating such hopefully over to low fiber in am can stop IV fluids since hydration is better and she is taking oral hydration without difficulty bmp/mag remain stable cont supportive care (2) Sepsis: Plan: 2nd to #1 above - resolved (3) Pre-diabetes: Plan: 03/2022 with Hba1c <6% no Rx needed (4) Chronic reflux esophagitis: Plan: change IV ppi to PO PPI (5) Melena: Plan: question of reports "dark stools" and her fecal occult was indeed positive however, H/H relatively stable rechecked H/H this evening and they remain stable doubt active GI bleeding at this time convert IV PPI to PO ppi repeat another cbc am Plan niece updated at bedside yesterday DVT proph - low risk, and given concerns for possible melena, defer on chemical means at this time PT consult ordered progressing nicely Admission and Anticipated Discharge Date Admission Date: July 15, 2022 Subjective feeling much better today no nausea no vomiting no stools since yesterday no melena or BRBPR no dyspepsia or reflux symptoms she has generalized weakness with getting up tele overnight wnl Review of Systems Review of Systems: gen - no fevers; appetite is slowly improving cv - no cp, no orthopnea pulm - no dyspnea on exertion GI - no abd pain - voiding adequately Physical Exam Physical Exam: gen - looks much better today neck - no JVD mouth - MMM heart - RRR, s1 s2, no murmur lungs - CTA b/l abd - soft, NT, ND, BS+, no HSM ext - no edema, pulses 2+ b/l psych - a/o x 3 Results & Data Results & Data Vital Signs (Past 12 Hours) Vital Signs Temp Pulse Pulse Resp BP Pulse Ox O2 Del Method 07/17/22 15:53 36.6 C 63 18 135/84 94 Room Air 07/17/22 15:00 71 07/17/22 10:55 36.6 C 66 18 117/76 96 Room Air 07/17/22 07:45 62 07/17/22 07:43 36.4 C L 69 18 130/81 93 Room Air Laboratory Results Laboratory Results - last 24 hr 07/17/22 07/17/22 07/17/22 06:24 06:24 17:10 WBC 8.98 RBC 3.20 L Hgb 10.9 L 11.7 L Hct 31.2 L 34.0 L MCV 97.5 MCH 34.1 H MCHC 34.9 RDW Std Deviation 46.9 H RDW Coeff of Abril 13.1 Plt Count 273 MPV 8.9 L Sodium 141 Potassium 3.6 Chloride 115 H Carbon Dioxide 23 Anion Gap 3 BUN 17 Creatinine 0.69 Est Cr Clr Drug Dosing 60.7 Est GFR ( Amer) 99.4 Est GFR (Non-Af Amer) 85.8 BUN/Creatinine Ratio 24.6 H Glucose 107 H Calcium 7.5 L Magnesium 1.7 PG Care Time/CCT Total # of Minutes Spent Total Time Spent with Patient: Total time spent is greater than 50% in coordination of care (as documented) at patient's floor/unit and/or counseling patient: Coding Level of Care Code 87392 SUB INP/OBS CARE 2/35MIN Diagnoses Gastroenteritis due to norovirus A08.11 Sepsis A41.9 Pre-diabetes R73.03 Chronic reflux esophagitis K21.0 Melena K92.1
[2022-07-17] MEDS: PANTOprazole 40 MG TAB PO SCH (20:08)
[2022-07-17] MEDS: ATORVASTATIN 20 MG TAB PO SCH (20:08)
[2022-07-18 06:12] LABS: Hematocrit (blood only) 31.4 % (37.0-47.0); Hemoglobin 11.1 g/dl (12.0-16.0); Mean Corpuscular Hemoglobin 33.5 pg (25.0-34.0); Mean Corpuscular Hgb Conc 35.4 g/dL (32.0-36.0); Mean Corpuscular Volume 94.9 fL (80.0-100.0); Mean Platelet Volume 8.7 fL (9.4-12.4); Platelet Count 277 K/uL (130-400); RDW Coefficient of Variation 12.9 % (11.5-14.5); RDW Standard Deviation 44.4 fL (36.4-46.3); Red Blood Count 3.31 M/uL (4.20-5.40); White Blood Count 7.23 K/ul (4.8-10.8)
[2022-07-18 06:16] LABS: BUN Creatinine Ratio 17.2 (10-20); Calcium 8.2 mg/dl (8.6-10.3); Creatinine Clr Calc Pharmacy 65.3 ml/min; Est GFR (African American) 101.9 ml/min; Est GFR (Non-African American) 87.9 ml/min; Potassium 3.5 mmol/L (3.5-5.1)
[2022-07-18] MEDS: PANTOprazole 40 MG TAB PO SCH ×2 (08:53→20:09)
[2022-07-18] MEDS: nadoloL 40 MG TAB PO SCH (08:53)
[2022-07-18] MEDS: SUCRALFATE 1 GM/10 ML UDC PO SCH ×2 (17:20→20:09)
[2022-07-18] MEDS: ATORVASTATIN 20 MG TAB PO SCH (20:09)
--- NOTE | 2022-07-18 21:14 | Hospitalist Progress Note ---
Date of Service July 18, 2022 Assessment & Plan (1) Gastroenteritis due to norovirus: Plan: clinically resolving/nearly resolved cont supportive care she is tolerating low fiber diet IV fluids are off leukocytosis resolved no fever in several days (2) Sepsis: Plan: 2nd to norovirus infection - resolved (3) Pre-diabetes: Plan: HbA1C 5.6% in 03/2022 diet control (4) Chronic reflux esophagitis: Plan: see below PPI twice daily added carafate 1gm QID as well GI consultation with [facility] [place] Dr Jean-Baptiste (5) Melena: Plan: patient had what sounds like coffee-ground emesis just prior to admission then, throughout this admission, has had "Black stools" had another melena stool this am H/H dropped only mildly throughout the stay H/H stable this am melena and coffee-ground emesis highly suspicious for upper GI bleeding - PUD, gastritis, esophagitis, other cont PPI + carafate I spoke with Dr Jean-Baptiste from GI who will consult does she need endoscopic eval? appreciate his consultation Plan hopefully home next 24 hours if stable and pending GI evaluation for #5 Admission and Anticipated Discharge Date Admission Date: July 15, 2022 Subjective patient cont to improve only 1 loose stool (this am) over the last 24 hours no nausea or emesis didn't eat much solid food this am w/ breakfast but had better lunch "I have an appetite again" she states her stool this am was "black" once again she recalls that before coming to the hospital she had an episode of vomiting "black stuff" Review of Systems Review of Systems: cv - no cp, no orthopnea pulm - no cough, no dyspnea GI - no N/V gen - no fevers Physical Exam Physical Exam: gen - looks well, NAD mouth - MMM neck - no JVD heart - RRR, s1 s2, no murmur lungs - CTA b/l; mildly decreased BS bases abd - soft NT ND BS+; no HSM ext - no edema, pulses 2+ b/l psych - a/o x 3 Results & Data Results & Data Vital Signs (Past 12 Hours) Vital Signs Temp Pulse Pulse Resp BP Pulse Ox O2 Del Method 07/18/22 19:20 36.6 C 66 18 116/71 96 Room Air 07/18/22 14:16 75 07/18/22 15:23 37.0 C 63 18 119/64 96 Room Air 07/18/22 11:35 36.9 C 59 L 18 115/75 94 Room Air Laboratory Results Laboratory Results - last 48 hr 07/17/22 07/17/22 07/17/22 06:24 06:24 17:10 WBC 8.98 RBC 3.20 L Hgb 10.9 L 11.7 L Hct 31.2 L 34.0 L MCV 97.5 MCH 34.1 H MCHC 34.9 RDW Std Deviation 46.9 H RDW Coeff of Abril 13.1 Plt Count 273 MPV 8.9 L Sodium 141 Potassium 3.6 Chloride 115 H Carbon Dioxide 23 Anion Gap 3 BUN 17 Creatinine 0.69 Est Cr Clr Drug Dosing 60.7 Est GFR ( Amer) 99.4 Est GFR (Non-Af Amer) 85.8 BUN/Creatinine Ratio 24.6 H Glucose 107 H Calcium 7.5 L Magnesium 1.7 07/18/22 07/18/22 05:44 05:44 WBC 7.23 RBC 3.31 L Hgb 11.1 L Hct 31.4 L MCV 94.9 MCH 33.5 MCHC 35.4 RDW Std Deviation 44.4 RDW Coeff of Abril 12.9 Plt Count 277 MPV 8.7 L Sodium 140 Potassium 3.5 Chloride 112 H Carbon Dioxide 24 Anion Gap 4 BUN 11 Creatinine 0.64 Est Cr Clr Drug Dosing 65.3 Est GFR ( Amer) 101.9 Est GFR (Non-Af Amer) 87.9 BUN/Creatinine Ratio 17.2 Glucose 85 Calcium 8.2 L Magnesium PG Care Time/CCT Total # of Minutes Spent Total Time Spent with Patient: Total time spent is greater than 50% in coordination of care (as documented) at patient's floor/unit and/or counseling patient: Coding Level of Care Code 73100 SUB INP/OBS CARE 235MIN Diagnoses Gastroenteritis due to norovirus A08.11 Sepsis A41.9 Pre-diabetes R73.03 Chronic reflux esophagitis K21.0 Melena K92.1
[2022-07-19] MEDS: SUCRALFATE 1 GM/10 ML UDC PO SCH (08:45)
[2022-07-19] MEDS: PANTOprazole 40 MG TAB PO SCH (08:45)
[2022-07-19] MEDS: nadoloL 40 MG TAB PO SCH (08:46)
[2022-07-19 09:20] LABS: Hematocrit (blood only) 33.5 % (37.0-47.0); Hemoglobin 11.6 g/dl (12.0-16.0)
--- NOTE | 2022-07-19 09:38 | Gastrointestinal Consultation ---
Date of Consultation July 19, 2022 Assessment & Plan (1) Melena: (2) Gastroenteritis due to norovirus: Discussed with Dr. Jean-Baptiste who advised on plan. Hgb is stable and actually improved this morning. Thus, at this time I doubt she has active GI bleeding. - continue protonix 40mg bid and carafate 1 gm qid. - we do not feel she needs an EGD done at this time. Patient tells me she prefers not to do a scope at this time but rather have close follow up after discharge. She tells me that she is feeling much better and wishes to go home. - will plan to have her follow up in the GI office next week for close follow up. Supervising Physician Co-Signing Physician Notes Agree with GHADA Garcia as above Patient was discharged prior to my evaluation History of Present Illness Reason for Consultation: UGIB melena Requesting Physician: Dante Owusu Attending Physician: Dante Owusu History of Present Illness Patient is a 76 year old female with a past medical history of insomnia, GERD, anxiety, HLD, MVP, and HTN presented to ED with complaints of watery diarrhea, vomiting, and nausea. During evaluation she was found to have norovirus. During her admission she had one episode of a dark stool on 07/18/22 - she has not moved her bowels since that time. She also tells me she had a darker episode of emesis prior to admission but nothing like that since. She admits to rare nsaid use at home. She denies any current issues with nausea, vomiting, heartburn, dysphagia, abdominal pain, or brbpr. She tells me she is feeling better overall and wishes to go home. she tells me she has never had an EGD. Last colonoscopy done 2010 with diverticulosis. 07/17/22 hgb 10.9 07/17/22 hgb 11.7 07/18/22 hgb 11.1 06/18/22 hgb 11.6 Allergies Allergy/AdvReac Type Severity Reaction Status Date / Time Sulfa (Sulfonamide Allergy Unknown Unknown Verified 07/02/22 13:26 Antibiotics) melatonin AdvReac Mild Diarrhea Verified 07/02/22 13:26 Home Medications Medication Instructions Recorded Confirmed Type polyvinyl alcohol-povidone 2.7 %-2 1 drp OPB QAM PRN Eye Irritation 10/19/18 07/15/22 History % eye drops ascorbic acid (vitamin C) 500 mg 500 mg PO QAM 02/22/19 07/15/22 History tablet calcium carbonate 600 mg calcium 600 mg PO BID 02/22/19 07/15/22 History (1,500 mg) tablet cholecalciferol (vitamin D3) 25 1,000 units PO QAM 02/22/19 07/15/22 History mcg (1,000 unit) capsule flaxseed oil 1,000 mg capsule 1,000 mg PO BID #1 cap 02/22/19 07/15/22 History omega-3 acid ethyl esters 1 gram 1 cap PO QAM #1 cap 02/22/19 07/15/22 History capsule sodium chloride 5 % eye ointment 1 appln OPB HS 02/22/19 07/15/22 History cinnamon bark 500 mg capsule 500 mg PO BIDM 04/11/19 07/15/22 History (Cinnamon) lactobacillus combination no.9 4 4,000 mmu cells PO DAILY 04/23/19 07/15/22 History billion cell capsule (Adult 50 Plus Probiotic) vitamin B12 500 mcg-folic acid 400 1 tab PO QDL 04/23/19 07/15/22 History mcg tablet nadolol 80 mg tablet 80 mg PO QAM #90 tabs 01/24/22 07/15/22 Rx atorvastatin 20 mg tablet 20 mg PO HS #30 tabs 04/12/22 07/15/22 Rx blood sugar diagnostic #50 ea 04/26/22 07/02/22 Rx glucometer- one touch #1 ea 04/26/22 07/02/22 Rx lancets #1 ea 04/26/22 07/02/22 Rx hydroxyzine HCl 25 mg tablet 25 mg PO TID PRN anxiety #90 tabs 05/15/22 07/15/22 Rx lorazepam 0.5 mg tablet 0.5 mg PO DAILY PRN anxiety #10 07/02/22 07/15/22 Rx tabs trazodone 100 mg tablet 100 mg PO HS PRN insomnia 07/15/22 07/15/22 History pantoprazole 40 mg tablet,delayed 40 mg PO BID #60 tabs 07/19/22 Rx release sucralfate 1 gram tablet (Carafate) 1 g PO AC 7 days #21 tabs 07/19/22 Rx Patient History Medical History Anxiety Chronic reflux esophagitis Dyslipidemia Hip pain, left Insomnia Lumbar radiculopathy Mitral valve prolapse syndrome Osteoarthritis of left hip Spinal stenosis, lumbar region with neurogenic claudication Surgical History No pertinent past surgical history Family History Mother Myocardial infarction Denies family history of Ovarian cancer Prostate cancer Breast cancer Colorectal cancer Social History Smoking Status: Never smoker Second Hand Exposure: No; Hx Alcohol Use: No Hx Substance Use: No Preferred Language: Cuban Communication Ability: Effective Sales Agent Business Services Required: No Beliefs That Will Affect Care: None marital status: Single Current Living Situation: Alone current occupational status: retired How many Children do You have: 0 Feels Safe at Home: Yes Childhood Exposure to Second-Hand Smoke: No caffeine: No Dental Care, Regularly: Yes Physical Activity Frequency: 3-4 Times per Week Seatbelt Use: always Sunscreen Use: Yes Assistive Devices: None Review of Systems 2 Review of Systems: All systems reviewed & are unremarkable except as noted in HPI & below Physical Exam Constitutional: WD/WN, vitals as above Respiratory: normal respiratory effort, lungs clear to auscultation Cardiovascular: RRR, no murmur, no edema Gastrointestinal (Abdomen): normal bowel sounds, soft, nontender, no hepatosplenomegaly Skin: no rashes, warm and dry Psychiatric: Orientation: alert and oriented x 3 Affect: euthymic affect Results & Data Vital Signs (Past 12 Hours) Vital Signs Temp Pulse Pulse Resp BP Pulse Ox O2 Del Method 07/19/22 07:38 98.1 F 58 L 16 133/83 95 Room Air 07/19/22 03:34 98.2 F 64 18 124/75 97 Room Air 07/18/22 22:03 63 07/18/22 22:43 98.1 F 64 18 115/69 95 Room Air PG Care Time/CCT Total # of Minutes Spent Total Time Spent with Patient: Total time spent is greater than 50% in coordination of care (as documented) at patient's floor/unit and/or counseling patient: Coding Level of Care Code 44963 INT INP/OBS CARE MIN Diagnoses Melena K92.1 Gastroenteritis due to norovirus A08.11 Time Spent (min) 40
[2022-07-19 09:46] LABS: Ferritin 61.2 ng/ml (8-388)
--- NOTE | 2022-07-19 12:29 | Discharge Summary ---
Date of Service date of admission - July 15, 2022 date of discharge - July 19, 2022 Admission HPI Per Admitting Provider 76 yo female PMHx of insomnia, GERD, anxiety, HLD, MVP, and HTN presents with 1 day of illness. Last night started having watery diarrhea, vomiting, and nausea. Diarrhea resolved this morning but had persistent vomiting which she states was black this morning. Associated fatigue and loss of appetite. Denies fever, cough, congestion, chest pain, sob, abd pain, dysuria. She did eat burger meat prior to symptom onset but says meat was fresh. In the ED, she did have a fever and states her BM was black as well. Did not take peptol bismol. No h/o c. diff. No h/o of GI bleed. Cologuard last year was negative. Principal Diagnosis 1. norovirus gastroenteritis 2. sepsis due to #1 3. melena stools - outpatient GI f/u needed 4. coffee-ground emesis - outpatient GI f/u needed Discharge Exam gen - looks well, NAD mouth - MMM neck - no JVD heart - RRR, s1 s2, no murmur lungs - CTA b/l abd - soft NT ND BS+; no HSM ext - no edema, pulses 2+ b/l psych - a/o x 3 Discharge Data Allergies Allergy/AdvReac Type Severity Reaction Status Date / Time Sulfa (Sulfonamide Allergy Unknown Unknown Verified 07/26/22 14:49 Antibiotics) melatonin AdvReac Mild Diarrhea Verified 07/26/22 14:49 Consultations [facility] Gastroenterology PT Ordered Studies Chest X-Ray 07/15/22 14:19 XR chest 1V portable HISTORY: 76 years-old Female Sepsis [breast with sepsis COMPARISON: 04/29/2022 TECHNIQUE: AP view of the chest FINDINGS: Cardiac silhouette is enlarged. Mild right hemidiaphragmatic elevation. Hiatal hernia. No pneumothorax, pleural effusion, airspace consolidation or pulmonary edema. Degenerative changes of the shoulders and spine. IMPRESSION: 1. Cardiomegaly without acute process. 2. Hiatal hernia. ACT 112: Negative or not required by law. The above report was generated using voice recognition software. It may contain grammatical, syntax or spelling errors. Electronically signed by: Alfredito Cazares M.D. 07/15/2022 3:18 PM Abdomen/Pelvis CT 07/15/22 14:20 CT SCAN OF THE ABDOMEN AND PELVIS WITH IV CONTRAST CLINICAL HISTORY: Generalized abdominal pain. Nausea and vomiting. Fever. COMPARISON STUDY: No priors. TECHNIQUE: Following the IV administration of 85 cc of Optiray 350, CT scan of the abdomen and pelvis is performed from the lung bases to the proximal femora. Images are reviewed in the axial, sagittal, and coronal planes. IV contrast was administered without complication. A dose lowering technique was utilized adhering to the principles of ALARA. CT DOSE: 471.59 mGycm FINDINGS: Lung bases: The heart is top normal in size and without pericardial effusion. The lung bases are clear noting bibasilar scarring/atelectasis. There is a moderate hiatal hernia. Liver: The contrast-enhanced liver is top normal in size and demonstrates diffusely diminished attenuation indicating steatosis. There is no intrahepatic biliary ductal dilatation. The hepatic veins and portal veins are patent. Gallbladder: The gallbladder wall appears thickened. Spleen: Normal in size and attenuation. Pancreas: Unremarkable. Adrenal glands: Unremarkable. Kidneys: The contrast enhanced kidneys are normal in size and without hydronephrosis. The kidneys enhance symmetrically. Scattered subcentimeter cortical hypodensities likely represent cysts but are too small for definitive characterization. Abdominal vasculature: The abdominal aorta is normal in course and caliber noting mild atherosclerotic calcification. Bowel: There is moderate colonic diverticulosis without CT evidence of acute diverticulitis. No bowel obstruction is seen. Liquid stool seen throughout the colon. There are also fluid-filled loops of small bowel. No bowel wall thickening or surrounding inflammation is seen. The distal stomach appears thickened and edematous. No surrounding inflammation is seen. A small duodenal diverticulum is incidentally noted. The appendix is well-visualized and normal. Peritoneum: There is no intraperitoneal free air or abdominal ascites. There is a fat-containing umbilical hernia. Lymphadenopathy: None. Pelvic viscera: The bladder, uterus, and adnexa are normal as visualized. Skeletal structures: The skeletal structures are osteopenic. There is mild lumbosacral spondylosis. No lytic or blastic lesions are seen. IMPRESSION: 1. Liquid stool is seen throughout the colon, and there are also fluid-filled loops of small bowel. There is no significant bowel wall thickening or surrounding inflammation. Correlate clinically for evidence of a nonspecific enterocolitis. 2. There is nonspecific gallbladder wall thickening. No significant surrounding inflammation is seen. Correlate with clinical and laboratory findings. If there is clinical concern for cholecystitis a right upper quadrant ultrasound could be obtained. 3. The distal stomach appears mildly thick-walled and edematous. No surrounding inflammation is seen. The stomach is not well evaluated by CT. Correlate clinically for evidence of gastritis or less likely ulcer disease. This could be further assessed with endoscopy if clinically warranted. 4. Moderate hiatal hernia. 5. Colonic diverticulosis without CT evidence of acute diverticulitis. 6. Additional findings as above. ACT 112: Negative or not required by law. Electronically signed by: Favian Hewitt M.D. 07/15/2022 4:53 PM Gallbladder Ultrasound 07/15/22 17:12 ULTRASOUND RIGHT UPPER QUADRANT ABDOMEN CLINICAL HISTORY: Right upper quadrant abdominal pain. COMPARISON STUDY: Abdominal CT dated 07/15/2022. TECHNIQUE: Real-time, grayscale, and color flow sonography of the right upper quadrant of the abdomen was performed. Images are reviewed in the transverse and longitudinal planes. FINDINGS: Liver: The liver is normal in size and echotexture. There is no intrahepatic biliary ductal dilatation. The main portal vein is patent. Gallbladder: The gallbladder is distended, and the wall appears thickened and edematous. This measures up to 4 mm. No shadowing gallstones are identified. There is no pericholecystic fluid. A sonographic Cui's sign is reportedly absent. The common bile duct measures up to 0.6 cm in diameter. Pancreas: Visualized portions of the pancreatic head and body are normal in appearance. Right kidney: Survey images of the right kidney demonstrate normal size and echotexture. There is no hydronephrosis. Ascites: None. IMPRESSION: 1. The gallbladder is distended and the wall appears mildly thickened and edematous. No shadowing gallstones are identified and a sonographic Cui's sign is reportedly absent. Findings are considered low suspicion for acute cholecystitis. If there is clinical concern for acalculous cholecystitis a nuclear hepatobiliary scan should be considered. 2. There is no intra or extrahepatic biliary ductal dilatation. ACT 112: Negative or not required by law. Electronically signed by: Favian Hewitt M.D. 07/15/2022 5:59 PM Hospital Course (1) Gastroenteritis due to norovirus: The patient was given supportive care, IV fluids, etc for her norovirus gastroenteritis. Leukocytosis and fever resolved well before discharge. She was resumed on a diet and advanced to low fiber without difficulty. Stools were markedly improved prior to discharge home. (2) Sepsis: 2nd to norovirus infection - resolved blood cx's were negative while here (3) Chronic reflux esophagitis: patient had moderate sized hiatal hernia based on CT scan continue PPI twice daily added carafate 1gm QID as well x 1 week seen by [facility] -- outpatient f/u advised for consideration of EGD (4) Melena: patient had what sounds like coffee-ground emesis just prior to admission then, throughout this admission, had "Black stools" stool was indeed heme + H/H dropped only mildly throughout the stay melena and coffee-ground emesis were highly suspicious for upper GI bleeding - PUD, gastritis, esophagitis, other diagnosis also potential culprits cont PPI + carafate upon discharge home she will f/u with [facility] as outpatient to discuss EGD she was asked to hold all NSAIDS and aspirin upon discharge home discharge hemoglobin was 11.6 (5) Pre-diabetes: HbA1C 5.6% in 03/2022 continue diet control Total Time Total Time Spent Total Time Spent (In Minutes): 25 Discharge Plan Discharge Items Patient Disposition: Home - Self-Care Reason For Visit: severe nausea, vomiting, diarrhea Discharge Diagnosis: 1. Norovirus gastroenteritis infection - resolved 2. Black stools, vomiting of "coffee ground" material - possible upper intestinal bleeding - appears to have resolved; gastroenterology follow-up needed 3. Dehydration - resolved Activity: As commented below Activity Comment: gradually increase your activity over the next 7 days as tolerated Non-emergency contact: Primary Care Provider and [employer] Call non-emergency contact if: you have any medication questions, your symptoms worsen and you have a fever Follow-up/Referrals: Shey Penny CRNP [Primary Care Provider] - 07/25/22 10:30 am Abrahan Jean-Baptiste DO [Physician] - 08/05/22 11:40 am (With Adolfo Gross PA-C) Diet: Low Fiber Addtl Attending Provider Instructions: Ms Wheeler, Mohan were hospitalized for a severe gastrointestinal (GI) illness caused by a virus called "norovirus." This virus causes a severe diarrheal illness in both children and adults. There is no specific antidote for it - it simply has to resolve over time. It often causes significant dehydration as it did in your case. You gradually improved with IV fluids, supportive care, and time. You have mentioned several times seeing "black" stool over the course of the week. Black stool is often a sign of upper gastrointestinal bleeding. Your stool was indeed positive for blood. You also had 1 episode before coming to the hospital of vomiting dark material. We treated you for presumed upper GI bleeding with IV acid reducers. Your blood counts did stabilize and went unchanged over a 2-3 day period suggesting any previous bleeding had stopped. Recommendations - 1. low fiber diet for about 5 days; see handout 2. focus on good hydration & nutrition during your recovery at home 3. STOP your omeprazole 4. START pantoprazole 40mg twice daily, first dose TONIGHT 5. START carafate (sucralfate) 1 gram three times daily before meals x 1 week; start this TONIGHT before your evening meal 6. Since your stools are normalizing (Becoming more formed, etc) the risk of contagiousness to others has likely dropped significantly or is negligible at this time. With that said, if you have visitors to your home over the next few days, please have everyone perform good handwashing with soap/water for 20 seconds or use hand open hearth door liner thoroughly. Have any visitor use a separate bathroom than the one you are currently using. 7. you may see dark or black stools for a few more days; this is likely OLD blood that simply has to pass through. The stool color should become brown in a few days. 8. please follow-up with [facility] to discuss outpatient upper endoscopy 9. STOP aspirin use 10. DO NOT take [id number] motrin, ibuprofen, aleve, naprosyn 11. TYLENOL IS OK for aches/pains; this will not cause bleeding or stomach upset Follow-up - see separate section Return to [facility] if - * you have fevers over 100 degrees * you develop recurrent, severe diarrhea * you develop abdominal pains * you see bright red blood in your stools * the dark stools do not go away over the next few days - or worsen * you have dizziness or lightheadedness * any other concerns It was our pleasure caring for you! -Dr Owusu Pending Studies at Discharge: No Stand-Alone Forms: My [facility], Smoking Cessation Medications and DC Order Prescriptions: New pantoprazole 40 mg Tablet,Delayed Release (Dr/Ec) 40 mg PO BID Qty: 60 1RF Continued nadolol 80 mg tablet 80 mg PO QAM Qty: 90 3RF atorvastatin 20 mg tablet 20 mg PO HS Qty: 30 11RF (DME) glucometer- one touch See Rx Instructions .Route .MEDSUPPLY Qty: 1 0RF Rx Instructions: test 3-4 x a week (DME) lancets See Rx Instructions .Route .MEDSUPPLY Qty: 1 0RF Rx Instructions: as directed (DME) blood sugar diagnostic Strip See Rx Instructions .Route Qty: 50 4RF Rx Instructions: test 3-4 x a week vitamin N50-rctvx acid 500-400 mcg tablet 1 tab PO QDL polyvinyl alcohol-povidone 2.7-2 % drops 1 drp OPB QAM PRN (Reason: Eye Irritation) ascorbic acid (vitamin C) 500 mg tablet 500 mg PO QAM calcium carbonate 600 mg calcium (1,500 mg) tablet 600 mg PO BID cholecalciferol (vitamin D3) 1,000 unit capsule 1,000 units PO QAM flaxseed oil 1,000 mg capsule 1,000 mg PO BID Qty: 1 omega-3 acid ethyl esters 1 gram capsule 1 cap PO QAM Qty: 1 sodium chloride 5 % ointment 1 appln OPB HS lorazepam 0.5 mg tablet 0.5 mg PO DAILY PRN (Reason: anxiety) Qty: 10 0RF hydroxyzine HCl 25 mg tablet 25 mg PO TID PRN (Reason: anxiety) Qty: 90 1RF cinnamon bark [Cinnamon] 500 mg Capsule 500 mg PO BIDM trazodone 100 mg tablet 100 mg PO HS PRN (Reason: insomnia) Hold Instructions: pt states this is on hold Discontinued omeprazole 20 mg capsule,delayed release(DR/EC) 20 mg PO QAM Qty: 90 3RF Rx Instructions: TAKE 1 CAPSULE BY MOUTH EVERY DAY IN THE MORNING. aspirin 81 mg Tablet,Delayed Release (Dr/Ec) 81 mg PO QAM Discharge Orders: Discharge Order (Routine); Ordered 07/19/22 Ordered By: Dante Owusu Admission Data Admit Date/Time: 07/15/22 19:48 Attending Provider: Dante Owusu Admit Provider: Faheem Tripathi Primary Care Provider: Shey Penny Other Providers: Dante Jackson ; Abrahan Jean-Baptiste Other Interventions: Discharge Summary Assessment (RN) Last Done: 07/19/22 12:50 Coding Level of Care Code 15174 IN/OBS DISCH 30 MIN/LESS Diagnoses Gastroenteritis due to norovirus A08.11 Sepsis A41.9 Chronic reflux esophagitis K21.0 Melena K92.1 Pre-diabetes R73.03
== END 2022-07-19 13:50 | disposition home or self-care (01) ==
LOC: ED 14:10 → 2S 19:48 → SUATTDRO 19:48 → INTOOBSV 19:48 → 2S 20:51